=== PATIENT | female | born 1945 | race Caucasian/White ===

== ENCOUNTER → 2016-08-24 | Outpatient (CLI) | payer OTHER ==
[2016-08-24 10:24] LABS: Urine RBC None Seen /hpf (0 - 4)
[2016-08-24 12:00] LABS: Urine Bilirubin Negative (Negative); Urine Blood TRACE /uL (Negative); Urine Color Yellow (Yellow); Urine Glucose Normal (Normal); Urine Ketone Negative (Negative); Urine Nitrite Negative (Negative); Urine Squamous Epithelial Cell FEW /hpf (<5); Urine Urobilinogen Normal (Negative)
== END | disposition home or self-care (01) ==
LOC: LAB 10:15
PROVIDERS: ATTEND Urology
DX: N81.10 Cystocele, unspecified (principal); N39.3 Stress incontinence (female) (male); Z46.89 Encounter for fitting and adjustment of other specified devices
CPT/HCPCS: 81001; 87086

== ENCOUNTER 2016-10-25 11:13 | Inpatient (IN) | payer OTHER ==
[~2016-10-25] VITALS: Ht 152.4 cm; Wt 56.0 kg
[~2016-10-25 11:13] MED LIST: ASPI81CH59 PO; CALC-437 OR; CHOL1TAB42 PO; LOVA40TA72
[2016-10-25 11:44] LABS: Basophils # (auto) 0 uL; Basophils % (auto) 0.2 % (0.0-2.0); Eosinophils # (auto) 0.3 uL; Eosinophils % (auto) 3.4 % (0.0-7.0); Hemoglobin 14.2 g/dL (12.2-16.2); Lymphocytes # (auto) 1.4 uL; Lymphocytes % (auto) 14.5 % (10.0-50.0); Mean Corpuscular Hemoglobin 27.9 pg (28.0-32.0); Mean Corpuscular Hgb Conc. 33.1 g/dL (32.0-36.0); Mean Corpuscular Volume 84.2 fL (80.0-100.0); Mean Platelet Volume 7.6 fL (7.4-10.4); Monocytes # (auto) 0.6 uL; Monocytes % (auto) 6.6 % (0.0-12.0); Neutrophils # (auto) 7.1 uL; Neutrophils % (auto) 75.3 % (37.0-80.0); Platelet Count (auto) 310 10^3/uL (140-450); Red Cell Distribution Width 13.3 % (11.6-16.0); White Blood Cell 9.4 10^3/uL (4.4-10.8)
[2016-10-25 12:09] LABS: Urine Bilirubin Negative (Negative); Urine Blood 2+ /uL (Negative); Urine Ca Oxalate Crystal FEW (None Seen); Urine Color Yellow (Yellow); Urine Glucose Normal (Normal); Urine Ketone Negative (Negative); Urine Mucus FEW (None Seen); Urine Nitrite Negative (Negative); Urine RBC 3 /hpf (0 - 4); Urine Squamous Epithelial Cell FEW /hpf (<5); Urine Urobilinogen Normal (Negative); Urine pH 5.5 (5.0-8.0)
[2016-10-25 12:10] LABS: Albumin 3.4 g/dL (3.4-5.0); Alkaline Phosphatase 67 U/L (45-117); Anion Gap 11 (5-15); Aspartate Aminotransferase 11 U/L (15-37); Bilirubin, Total 0.4 mg/dL (0.2-1.0); Blood Urea Nitrogen 11 mg/dL (7-18); Calcium 8.5 mg/dL (8.5-10.1); Carbon Dioxide 24 mmol/L (21-32); Chloride 108 mmol/L (98-107); GFR African American 125 mL/min; GFR Non-African American 103 mL/min; Glucose 117 mg/dL (74-106); Magnesium 2.5 mg/dL (1.6-2.6); Potassium 3.4 mmol/L (3.5-5.1); Sodium 143 mmol/L (136-145); Total Protein 7.5 g/dL (6.4-8.2)
[2016-10-25] MEDS ORDERED: SODIUM CHLORIDE 0.9% 1,000 ML IV ONE (18:15)
[2016-10-25] MEDS ORDERED: SODIUM CHLORIDE 0.9% 1,000 ML IVB ONE (18:18)
[2016-10-25] MEDS ORDERED: ONDANSETRON HCL 4 MG/2 ML VIAL IV ONE (18:30)
[2016-10-25 18:58] LABS: Amylase 28 U/L (25-115)
[2016-10-25] MEDS ORDERED: metroNIDAZOLE 500MG/100ML 100 ML IV ONE (20:15)
[2016-10-25] MEDS ORDERED: cefTRIAXone 1GM/50ML D5W 50 ML IV ONE (20:15)
[2016-10-25] MEDS ORDERED: HYDROcodone-ACET 5/325MG TAB PO PRN (22:00)
[2016-10-25] MEDS ORDERED: PATIENTS OWN MEDICATION (lovastatin 40 MG) PO SCH ×2 (22:00)
[2016-10-25] MEDS ORDERED: TEMAZEPAM 15 MG CAP PO PRN (22:00)
[2016-10-25] MEDS ORDERED: ACETAMINOPHEN 325 MG TAB PO PRN (22:00)
[2016-10-25] MEDS ORDERED: PANTOPRAZOLE SODIUM 40 MG/10 ML VIAL IV ONE (22:00)
[2016-10-25] MEDS ORDERED: LOPERAMIDE HCL 2 MG CAP PO PRN (22:00)
[2016-10-25] MEDS ORDERED: ONDANSETRON HCL 4 MG/2 ML VIAL IV PRN (22:00)
[2016-10-25] MEDS ORDERED: ENOXAPARIN SOD 40 MG/0.4 ML SYRINGE SC ONE (22:30)
[2016-10-25] MEDS ORDERED: ATORVASTATIN 20 MG TAB PO ONE (22:30)
[2016-10-25] MEDS: SODIUM CHLORIDE 0.9% 1,000 ML IV SCH (22:30)
[2016-10-25] MEDS ORDERED: POTASSIUM CHL 20 Meq TABLET PO ONE (22:30)
[2016-10-25 22:48] VITALS: BP 143/83
[2016-10-26] VITALS (7 sets, daily range): BP systolic 126–134; BP diastolic 67–73
[2016-10-26] MEDS ORDERED: CHOL500023 PO (01:03)
[2016-10-26] MEDS ORDERED: CALC600T25 PO (01:03)
[2016-10-26] MEDS ORDERED: LOVA40TA72 PO (01:03)
[2016-10-26] MEDS ORDERED: metroNIDAZOLE 500MG/100ML 100 ML IV SCH ×2 (04:00→14:00)
[2016-10-26 05:30] LABS: Basophils # (auto) 0 uL; Basophils % (auto) 0.5 % (0.0-2.0); Eosinophils # (auto) 0.4 uL; Eosinophils % (auto) 6.9 % (0.0-7.0); Hematocrit 34.5 % (36.0-46.0); Hemoglobin 11.5 g/dL (12.2-16.2); Lymphocytes # (auto) 1.4 uL; Lymphocytes % (auto) 24.5 % (10.0-50.0); Mean Corpuscular Hemoglobin 28.1 pg (28.0-32.0); Mean Corpuscular Hgb Conc. 33.3 g/dL (32.0-36.0); Mean Corpuscular Volume 84.4 fL (80.0-100.0); Mean Platelet Volume 7.9 fL (7.4-10.4); Monocytes # (auto) 0.5 uL; Monocytes % (auto) 8.6 % (0.0-12.0); Neutrophils # (auto) 3.4 uL; Neutrophils % (auto) 59.5 % (37.0-80.0); Platelet Count (auto) 247 10^3/uL (140-450); Red Cell Distribution Width 13.1 % (11.6-16.0); White Blood Cell 5.7 10^3/uL (4.4-10.8)
[2016-10-26 05:58] LABS: Albumin 2.6 g/dL (3.4-5.0); Bilirubin, Total 0.4 mg/dL (0.2-1.0); Calcium 7.5 mg/dL (8.5-10.1); Potassium 3.6 mmol/L (3.5-5.1); Total Protein 5.7 g/dL (6.4-8.2)
[2016-10-26] MEDS ORDERED: cefTRIAXone 1GM/50ML D5W 50 ML IV SCH (09:00)
[2016-10-26] MEDS: FLORASTOR (S. BOULARDII) 250 MG CAP PO SCH (09:39)
[2016-10-26] MEDS: ENOXAPARIN SOD 40 MG/0.4 ML SYRINGE SC SCH (09:40)
[2016-10-26] MEDS ORDERED: PANTOPRAZOLE SODIUM 40 MG/10 ML VIAL IV SCH (10:00)
[2016-10-26] MEDS: VANCOMYCIN HCL 125MG/5ML ORAL SOL GT SCH ×2 (13:21→18:47)
[2016-10-26] MEDS: SODIUM CHLORIDE 0.9% 1,000 ML IV SCH (15:00)
[2016-10-26] MEDS ORDERED: ATORVASTATIN 20 MG TAB PO SCH (22:00)
[2016-10-26] MEDS: ATORVASTATIN 20 MG TAB PO SCH (22:10)
[2016-10-27] VITALS (7 sets, daily range): BP systolic 118–127; BP diastolic 55–70
[2016-10-27] MEDS: VANCOMYCIN HCL 125MG/5ML ORAL SOL GT SCH ×4 (00:28→17:46)
[2016-10-27 06:25] LABS: Basophils # (auto) 0 uL; Basophils % (auto) 0.4 % (0.0-2.0); Eosinophils # (auto) 0.4 uL; Eosinophils % (auto) 8.6 % (0.0-7.0); Hematocrit 34.8 % (36.0-46.0); Hemoglobin 11.8 g/dL (12.2-16.2); Lymphocytes # (auto) 1.2 uL; Lymphocytes % (auto) 28.1 % (10.0-50.0); Mean Corpuscular Hemoglobin 28.3 pg (28.0-32.0); Mean Corpuscular Volume 83.3 fL (80.0-100.0); Mean Platelet Volume 7.8 fL (7.4-10.4); Monocytes # (auto) 0.5 uL; Monocytes % (auto) 11.2 % (0.0-12.0); Neutrophils # (auto) 2.2 uL; Neutrophils % (auto) 51.7 % (37.0-80.0); Platelet Count (auto) 255 10^3/uL (140-450); Red Cell Distribution Width 13.3 % (11.6-16.0); White Blood Cell 4.3 10^3/uL (4.4-10.8)
[2016-10-27 06:53] LABS: BUN/Creatinine Ratio 13.5; Calcium 7.9 mg/dL (8.5-10.1); Potassium 3.6 mmol/L (3.5-5.1)
[2016-10-27] MEDS: SODIUM CHLORIDE 0.9% 1,000 ML IV SCH (07:35)
[2016-10-27] MEDS: ENOXAPARIN SOD 40 MG/0.4 ML SYRINGE SC SCH (10:33)
[2016-10-27] MEDS: FLORASTOR (S. BOULARDII) 250 MG CAP PO SCH (10:33)
[2016-10-27] MEDS: metroNIDAZOLE 500 MG TAB PO SCH ×2 (17:46→22:12)
[2016-10-27] MEDS: ATORVASTATIN 20 MG TAB PO SCH (22:12)
[2016-10-28] MEDS: VANCOMYCIN HCL 125MG/5ML ORAL SOL GT SCH ×5 (00:18→23:37)
[2016-10-28 05:00] VITALS: BP 123/61
[2016-10-28] MEDS: metroNIDAZOLE 500 MG TAB PO SCH ×3 (06:13→21:50)
[2016-10-28 08:10] VITALS: BP 125/52
[2016-10-28 09:00] VITALS: BP 125/52
[2016-10-28] MEDS: FLORASTOR (S. BOULARDII) 250 MG CAP PO SCH (11:12)
[2016-10-28 13:00] VITALS: BP 115/52
[2016-10-28 17:10] VITALS: BP 110/68
[2016-10-28 21:36] VITALS: BP 127/72
[2016-10-28] MEDS: ATORVASTATIN 20 MG TAB PO SCH (21:50)
[2016-10-29 04:56] VITALS: BP 123/66
[2016-10-29] MEDS: VANCOMYCIN HCL 125MG/5ML ORAL SOL GT SCH ×3 (05:49→18:10)
[2016-10-29] MEDS: metroNIDAZOLE 500 MG TAB PO SCH ×2 (05:49→14:51)
[2016-10-29 09:00] VITALS: BP 119/62
[2016-10-29] MEDS: FLORASTOR (S. BOULARDII) 250 MG CAP PO SCH (10:31)
[2016-10-29 13:00] VITALS: BP 121/55
[2016-10-29 17:00] VITALS: BP 145/62
[2016-10-29 17:31] VITALS: BP 121/55
[2016-10-29] MEDS ORDERED: PRO-STAT 64 30ML PO SCH (18:00)
== END 2016-10-29 19:00 | disposition home or self-care (01) | DRG 372 ==
LOC: ER 11:16 → OVERFLOW 11:17 → EAST 22:57
PROVIDERS: ADMIT Internal Medicine; ATTEND Internal Medicine
DX: A04.7 Enterocolitis due to Clostridium difficile (principal); N30.00 Acute cystitis without hematuria; E78.5 Hyperlipidemia, unspecified; E86.0 Dehydration; E87.6 Hypokalemia; K57.30 Diverticulosis of large intestine without perforation or abscess without bleeding; Z82.0 Family history of epilepsy and other diseases of the nervous system; Z82.49 Family history of ischemic heart disease and other diseases of the circulatory system; Z82.3 Family history of stroke; Z79.899 Other long term (current) drug therapy
CPT/HCPCS: 36415; 71010; 74176; 80048; 80053; 81001; 82150; 83690; 83735; 84484; 85025; 87081; 87086; 87493; 93005; 94761; 96361; 96365; 96368; 96375; C9113; J0696; J2405; J3490

== ENCOUNTER → 2016-11-10 | Outpatient (CLI) | payer OTHER ==
[~2016-11-10] MED LIST changes: -CALC-437 OR; +CALC600T25 PO; -CHOL1TAB42 PO; +CHOL500023 PO; -LOVA40TA72; +LOVA40TA72 PO
[2016-11-10 08:04] LABS: Basophils # (auto) 0 uL; Basophils % (auto) 0.6 % (0.0-2.0); Eosinophils # (auto) 0.2 uL; Eosinophils % (auto) 5.2 % (0.0-7.0); Hematocrit 41.6 % (36.0-46.0); Hemoglobin 13.5 g/dL (12.2-16.2); Lymphocytes # (auto) 1.6 uL; Lymphocytes % (auto) 33.6 % (10.0-50.0); Mean Corpuscular Hemoglobin 27.5 pg (28.0-32.0); Mean Corpuscular Hgb Conc. 32.5 g/dL (32.0-36.0); Mean Corpuscular Volume 84.8 fL (80.0-100.0); Mean Platelet Volume 8.4 fL (7.4-10.4); Monocytes # (auto) 0.3 uL; Monocytes % (auto) 6.8 % (0.0-12.0); Neutrophils # (auto) 2.5 uL; Neutrophils % (auto) 53.8 % (37.0-80.0); Platelet Count (auto) 306 10^3/uL (140-450); Red Cell Distribution Width 14.2 % (11.6-16.0); White Blood Cell 4.7 10^3/uL (4.4-10.8)
[2016-11-10 08:25] LABS: Urine Bilirubin Negative (Negative); Urine Color Yellow (Yellow); Urine Glucose Normal (Normal); Urine Ketone TRACE (Negative); Urine Mucus FEW (None Seen); Urine Nitrite Negative (Negative); Urine RBC 8 /hpf (0 - 4); Urine Squamous Epithelial Cell MOD /hpf (<5); Urine Urobilinogen Normal (Negative); Urine pH 5.5 (5.0-8.0)
[2016-11-10 08:26] LABS: Urine Blood 1+ /uL (Negative)
[2016-11-10 08:35] LABS: Albumin 3.4 g/dL (3.4-5.0); BUN/Creatinine Ratio 28.3; Bilirubin, Total 0.4 mg/dL (0.2-1.0); Calcium 8.9 mg/dL (8.5-10.1); Potassium 3.9 mmol/L (3.5-5.1); Total Protein 6.8 g/dL (6.4-8.2)
== END | disposition home or self-care (01) ==
LOC: LAB 07:02
PROVIDERS: ATTEND Internal Medicine
DX: A04.7 Enterocolitis due to Clostridium difficile (principal)
CPT/HCPCS: 36415; 80053; 81001; 85025; 87086

== ENCOUNTER → 2016-11-13 | Outpatient (CLI) | payer OTHER | END | disposition home or self-care (01) | LOC: LAB 15:19 | PROVIDERS: ATTEND Internal Medicine | DX: N39.0 Urinary tract infection, site not specified (principal) | CPT/HCPCS: 87086 ==

== ENCOUNTER 2016-11-15 10:43 | Inpatient (IN) | payer OTHER ==
[~2016-11-15] VITALS: Ht 152.4 cm; Wt 56.1 kg
[2016-11-15 11:41] LABS: Basophils # (auto) 0 uL; Basophils % (auto) 0.1 % (0.0-2.0); Eosinophils # (auto) 0.1 uL; Eosinophils % (auto) 0.9 % (0.0-7.0); Hematocrit 41.8 % (36.0-46.0); Hemoglobin 13.8 g/dL (12.2-16.2); Lymphocytes # (auto) 1.2 uL; Lymphocytes % (auto) 9.2 % (10.0-50.0); Mean Corpuscular Hemoglobin 27.8 pg (28.0-32.0); Mean Corpuscular Hgb Conc. 32.9 g/dL (32.0-36.0); Mean Corpuscular Volume 84.4 fL (80.0-100.0); Mean Platelet Volume 7.7 fL (7.4-10.4); Monocytes # (auto) 0.8 uL; Monocytes % (auto) 5.8 % (0.0-12.0); Platelet Count (auto) 249 10^3/uL (140-450); Red Cell Distribution Width 13.8 % (11.6-16.0); White Blood Cell 13.1 10^3/uL (4.4-10.8)
[2016-11-15] MEDS ORDERED: SODIUM CHLORIDE 0.9% 1,000 ML IVB ONE (11:47)
[2016-11-15 12:05] LABS: Albumin 3.7 g/dL (3.4-5.0); Alkaline Phosphatase 67 U/L (45-117); Anion Gap 9 (5-15); Aspartate Aminotransferase 16 U/L (15-37); BUN/Creatinine Ratio 16.7; Bilirubin, Total 0.8 mg/dL (0.2-1.0); Blood Urea Nitrogen 9 mg/dL (7-18); Calcium 8.6 mg/dL (8.5-10.1); Carbon Dioxide 26 mmol/L (21-32); Chloride 105 mmol/L (98-107); GFR African American 144 mL/min; GFR Non-African American 119 mL/min; Glucose 107 mg/dL (74-106); Potassium 3.6 mmol/L (3.5-5.1); Sodium 140 mmol/L (136-145); Total Protein 7.3 g/dL (6.4-8.2)
[2016-11-15 12:19] LABS: Magnesium 2.6 mg/dL (1.6-2.6)
[2016-11-15 12:27] LABS: INR 0.93 (0.9-1.15); Partial Thromboplastin Time 25.9 sec (22.64-33.71)
[2016-11-15 12:43] LABS: Urine Bilirubin Negative (Negative); Urine Blood TRACE /uL (Negative); Urine Color Colorless (Yellow); Urine Glucose Normal (Normal); Urine Ketone Negative (Negative); Urine Nitrite Negative (Negative); Urine RBC <1 /hpf (0 - 4); Urine Urobilinogen Normal (Negative); Urine pH 5.5 (5.0-8.0)
[2016-11-15] MEDS ORDERED: metroNIDAZOLE 500MG/100ML 100 ML IV ONE (13:00)
[2016-11-15] MEDS ORDERED: LORazepam 0.5 MG TAB PO PRN (13:45)
[2016-11-15] MEDS ORDERED: HYDROcodone-ACET 5/325MG TAB PO PRN (13:45)
[2016-11-15] MEDS ORDERED: TEMAZEPAM 15 MG CAP PO PRN (13:45)
[2016-11-15] MEDS ORDERED: MORPHINE SULF INJ 2 MG/ML SYRINGE 1ML IV PRN (13:45)
[2016-11-15] MEDS ORDERED: ACETAMINOPHEN 500 MG TAB PO PRN (13:45)
[2016-11-15] MEDS ORDERED: PROMETHAZINE HCL 25 MG/ML 1ML IV PRN (13:45)
[2016-11-15] MEDS ORDERED: FAMOTIDINE 20 MG TAB PO ONE (14:30)
[2016-11-15] MEDS: SODIUM CHLORIDE 0.9% 1,000 ML IV SCH (14:54)
[2016-11-15] MEDS: metroNIDAZOLE 500 MG TAB PO SCH ×2 (14:55→22:21)
[2016-11-15 16:00] VITALS: BP 123/66
[2016-11-15] MEDS ORDERED: GOLYTELY 4L KIT PO ONE (16:00)
[2016-11-15] MEDS ORDERED: metroNIDAZOLE 500MG/100ML 100 ML IV SCH (18:00)
[2016-11-15 21:32] VITALS: BP 141/68
[2016-11-15] MEDS: FAMOTIDINE 20 MG TAB PO SCH (22:20)
[2016-11-15] MEDS: VANCOMYCIN HCL 125MG/5ML ORAL SOL PO SCH (22:22)
[2016-11-16] MEDS: SODIUM CHLORIDE 0.9% 1,000 ML IV SCH ×3 (01:36→17:08)
[2016-11-16] MEDS: VANCOMYCIN HCL 125MG/5ML ORAL SOL PO SCH (04:54)
[2016-11-16] MEDS: metroNIDAZOLE 500 MG TAB PO SCH (04:54)
[2016-11-16 05:01] VITALS: BP 108/61
[2016-11-16 06:49] LABS: Basophils # (auto) 0 uL; Basophils % (auto) 0.3 % (0.0-2.0); Eosinophils # (auto) 0.2 uL; Hematocrit 34.1 % (36.0-46.0); Hemoglobin 11.4 g/dL (12.2-16.2); Lymphocytes # (auto) 1.7 uL; Lymphocytes % (auto) 19.4 % (10.0-50.0); Mean Corpuscular Hemoglobin 28.3 pg (28.0-32.0); Mean Corpuscular Hgb Conc. 33.5 g/dL (32.0-36.0); Mean Corpuscular Volume 84.3 fL (80.0-100.0); Mean Platelet Volume 7.9 fL (7.4-10.4); Monocytes # (auto) 0.5 uL; Monocytes % (auto) 5.9 % (0.0-12.0); Neutrophils # (auto) 6.3 uL; Neutrophils % (auto) 72.4 % (37.0-80.0); Platelet Count (auto) 213 10^3/uL (140-450); Red Cell Distribution Width 13.8 % (11.6-16.0); White Blood Cell 8.7 10^3/uL (4.4-10.8)
[2016-11-16 08:00] VITALS: BP 114/63
[2016-11-16 08:05] VITALS: BP 114/63
[2016-11-16] MEDS ORDERED: MIDAZOLAM HCL 5 MG/ML-1ML VIAL ONE (08:12)
[2016-11-16] MEDS ORDERED: diphenhdrAMINE HCL 50 MG/1 ML VL ONE (08:12)
[2016-11-16] MEDS ORDERED: SODIUM CHLORIDE LOCK 10 ML ONE (08:12)
[2016-11-16] MEDS ORDERED: fentaNYL CITRATE 100 MCG/2 ML VL ONE (08:13)
[2016-11-16] MEDS: FAMOTIDINE 20 MG TAB PO SCH (10:00)
[2016-11-16 16:51] VITALS: BP 125/60
[2016-11-16 22:00] VITALS: BP 128/45
[2016-11-16] MEDS: PANTOPRAZOLE 40 MG TAB PO SCH (22:01)
[2016-11-16] MEDS: FLORASTOR (S. BOULARDII) 250 MG CAP PO SCH (22:01)
[2016-11-17 05:00] VITALS: BP 133/67
[2016-11-17] MEDS: SODIUM CHLORIDE 0.9% 1,000 ML IV SCH ×2 (05:44→13:59)
[2016-11-17 07:05] LABS: Basophils # (auto) 0 uL; Basophils % (auto) 0.4 % (0.0-2.0); Eosinophils # (auto) 0.2 uL; Eosinophils % (auto) 3.6 % (0.0-7.0); Hematocrit 35.9 % (36.0-46.0); Hemoglobin 12.1 g/dL (12.2-16.2); Lymphocytes # (auto) 1.3 uL; Lymphocytes % (auto) 27.3 % (10.0-50.0); Mean Corpuscular Hemoglobin 28.1 pg (28.0-32.0); Mean Corpuscular Hgb Conc. 33.7 g/dL (32.0-36.0); Mean Corpuscular Volume 83.6 fL (80.0-100.0); Mean Platelet Volume 7.6 fL (7.4-10.4); Monocytes # (auto) 0.4 uL; Monocytes % (auto) 7.4 % (0.0-12.0); Neutrophils % (auto) 61.3 % (37.0-80.0); Platelet Count (auto) 226 10^3/uL (140-450); Red Cell Distribution Width 13.8 % (11.6-16.0); White Blood Cell 4.8 10^3/uL (4.4-10.8)
[2016-11-17 07:21] LABS: BUN/Creatinine Ratio 15.2; Calcium 7.9 mg/dL (8.5-10.1); Potassium 3.6 mmol/L (3.5-5.1)
[2016-11-17 08:00] VITALS: BP 132/63
[2016-11-17 08:29] VITALS: BP 132/63
[2016-11-17] MEDS: PANTOPRAZOLE 40 MG TAB PO SCH (09:35)
[2016-11-17] MEDS: FLORASTOR (S. BOULARDII) 250 MG CAP PO SCH ×2 (09:35→22:27)
[2016-11-17] MEDS ORDERED: FECAL MICROBIOTA TRANSPLANTATION 30mL SUSPENSION NG ONE (10:00)
[2016-11-17 12:58] VITALS: BP 153/73
[2016-11-17 17:14] VITALS: BP 135/66
[2016-11-17 21:42] VITALS: BP 148/72
[2016-11-18] MEDS: SODIUM CHLORIDE 0.9% 1,000 ML IV SCH ×3 (01:44→21:16)
[2016-11-18 04:47] VITALS: BP 141/63
[2016-11-18 08:20] VITALS: BP 136/76
[2016-11-18 09:00] VITALS: BP 136/76
[2016-11-18] MEDS: FLORASTOR (S. BOULARDII) 250 MG CAP PO SCH ×2 (10:49→21:17)
[2016-11-18 13:00] VITALS: BP 148/75
[2016-11-18 16:42] VITALS: BP 138/74
[2016-11-19] MEDS: SODIUM CHLORIDE 0.9% 1,000 ML IV SCH (04:44)
[2016-11-19 06:11] VITALS: BP 132/68
[2016-11-19 07:45] VITALS: BP 137/67
[2016-11-19 09:00] VITALS: BP 137/67
[2016-11-19] MEDS: FLORASTOR (S. BOULARDII) 250 MG CAP PO SCH (09:57)
[2016-11-19 11:52] VITALS: BP 137/67
== END 2016-11-19 12:10 | disposition home or self-care (01) | DRG 373 ==
LOC: ER 10:47 → OVERFLOW 11:51 → OBSVTOIN 11:52 → CENTRAL 15:23
PROVIDERS: ADMIT Family Medicine; ATTEND Internal Medicine
PROC: 0DBP8ZX Excision of Rectum, Via Natural or Artificial Opening Endoscopic, Diagnostic (ICD-10-PCS; 2016-11-16)
PROC: 0DBE8ZX Excision of Large Intestine, Via Natural or Artificial Opening Endoscopic, Diagnostic (ICD-10-PCS; 2016-11-16)
PROC: 3E0H7GC Introduction of Other Therapeutic Substance into Lower GI, Via Natural or Artificial Opening (ICD-10-PCS; 2016-11-16)
PROC: 0DBM8ZX Excision of Descending Colon, Via Natural or Artificial Opening Endoscopic, Diagnostic (ICD-10-PCS; principal; 2016-11-16 11:26)
DX: A04.7 Enterocolitis due to Clostridium difficile (principal); Z79.899 Other long term (current) drug therapy; E78.5 Hyperlipidemia, unspecified; K57.30 Diverticulosis of large intestine without perforation or abscess without bleeding; Z82.0 Family history of epilepsy and other diseases of the nervous system; Z82.49 Family history of ischemic heart disease and other diseases of the circulatory system; Z90.89 Acquired absence of other organs; K76.0 Fatty (change of) liver, not elsewhere classified; K63.5 Polyp of colon; K62.89 Other specified diseases of anus and rectum; Z80.9 Family history of malignant neoplasm, unspecified
CPT/HCPCS: 36415; 45380; 71010; 74176; 80048; 80053; 81001; 82150; 83690; 83735; 84484; 85025; 85610; 85652; 85730; 86141; 87493; 93005; 94761; 96361; 96374; J2250; J3490

== ENCOUNTER → 2016-11-29 | Outpatient (CLI) | payer OTHER ==
[2016-11-29 15:32] LABS: Basophils # (auto) 0 uL; Basophils % (auto) 0.4 % (0.0-2.0); Eosinophils # (auto) 0.2 uL; Eosinophils % (auto) 2.7 % (0.0-7.0); Hematocrit 40.1 % (36.0-46.0); Hemoglobin 13.5 g/dL (12.2-16.2); Lymphocytes # (auto) 1.4 uL; Lymphocytes % (auto) 21.3 % (10.0-50.0); Mean Corpuscular Hemoglobin 28.2 pg (28.0-32.0); Mean Corpuscular Hgb Conc. 33.7 g/dL (32.0-36.0); Mean Corpuscular Volume 83.6 fL (80.0-100.0); Mean Platelet Volume 7.7 fL (7.4-10.4); Monocytes # (auto) 0.5 uL; Monocytes % (auto) 7.2 % (0.0-12.0); Neutrophils # (auto) 4.4 uL; Neutrophils % (auto) 68.4 % (37.0-80.0); Platelet Count (auto) 327 10^3/uL (140-450); Red Cell Distribution Width 14.1 % (11.6-16.0); White Blood Cell 6.4 10^3/uL (4.4-10.8)
[2016-11-29 15:33] LABS: Urine Bilirubin Negative (Negative); Urine Blood TRACE /uL (Negative); Urine Color Yellow (Yellow); Urine Glucose Normal (Normal); Urine Ketone Negative (Negative); Urine Mucus FEW (None Seen); Urine Nitrite Negative (Negative); Urine RBC 1 /hpf (0 - 4); Urine Squamous Epithelial Cell FEW /hpf (<5); Urine Urobilinogen Normal (Negative); Urine pH 5.5 (5.0-8.0)
[2016-11-29 15:39] LABS: Albumin 3.4 g/dL (3.4-5.0); BUN/Creatinine Ratio 21.2; Calcium 8.7 mg/dL (8.5-10.1); Potassium 3.8 mmol/L (3.5-5.1)
[2016-11-29 15:48] LABS: Bilirubin, Total 0.3 mg/dL (0.2-1.0); Total Protein 7.3 g/dL (6.4-8.2)
== END | disposition home or self-care (01) ==
LOC: LAB 14:50
PROVIDERS: ATTEND Internal Medicine
DX: A04.7 Enterocolitis due to Clostridium difficile (principal)
CPT/HCPCS: 36415; 80053; 81001; 85025

== ENCOUNTER 2017-03-15 09:12 | Emergency (ER) | payer OTHER ==
[~2017-03-15] VITALS: Ht 152.4 cm; Wt 54.4 kg
[2017-03-15 10:29] LABS: Calcium 8.8 mg/dL (8.5-10.1); Potassium 3.9 mmol/L (3.5-5.1)
[2017-03-15 10:31] LABS: Basophils # (auto) 0 uL; Basophils % (auto) 0.3 % (0.0-2.0); CONDITION Y; Eosinophils # (auto) 0.1 uL; Eosinophils % (auto) 1.8 % (0.0-7.0); Hematocrit 42.6 % (36.0-46.0); Hemoglobin 14.6 g/dL (12.2-16.2); Lymphocytes # (auto) 1.4 uL; Lymphocytes % (auto) 26.2 % (10.0-50.0); Mean Corpuscular Hemoglobin 28.5 pg (28.0-32.0); Mean Corpuscular Hgb Conc. 34.2 g/dL (32.0-36.0); Mean Corpuscular Volume 83.3 fL (80.0-100.0); Monocytes # (auto) 0.3 uL; Monocytes % (auto) 6.2 % (0.0-12.0); Neutrophils # (auto) 3.5 uL; Neutrophils % (auto) 65.5 % (37.0-80.0); Platelet Count (auto) 250 10^3/uL (140-450); Red Cell Distribution Width 13.5 % (11.6-16.0); White Blood Cell 5.4 10^3/uL (4.4-10.8)
[2017-03-15 10:32] LABS: Bilirubin, Total 0.4 mg/dL (0.2-1.0); Total Protein 7.7 g/dL (6.4-8.2)
[2017-03-15] MEDS ORDERED: SODIUM CHLORIDE 0.9% 1,000 ML IV ONE (13:45)
[2017-03-15 14:02] LABS: INR 0.94 (0.9-1.15); Partial Thromboplastin Time 26.4 sec (22.64-33.71); Prothrombin Time 10.2 sec (9.37-12.3)
[2017-03-15 16:00] VITALS: BP 118/62
== END 2017-03-15 17:20 | disposition home or self-care (01) ==
LOC: ER 09:12
DX: K64.9 Unspecified hemorrhoids (principal); K57.30 Diverticulosis of large intestine without perforation or abscess without bleeding; Z79.82 Long term (current) use of aspirin; E78.00 Pure hypercholesterolemia, unspecified
CPT/HCPCS: 36415; 74176; 80053; 85025; 85610; 85730; 93005; 96360

== ENCOUNTER → 2017-03-26 | Outpatient (CLI) | payer OTHER | END | disposition home or self-care (01) | LOC: LAB 07:33 | PROVIDERS: ATTEND Internal Medicine | DX: E55.9 Vitamin D deficiency, unspecified (principal) | CPT/HCPCS: 82306; 84156 ==

== ENCOUNTER → 2017-04-06 | Outpatient (CLI) | payer OTHER ==
[2017-04-09 13:07] LABS: Antiproteinase 3 (PR-3) Ab <3.5 U/mL (0.0-3.5)
== END | disposition home or self-care (01) ==
LOC: LAB 12:02
PROVIDERS: ATTEND Internal Medicine
DX: K92.1 Melena (principal)
CPT/HCPCS: 36415; 83520; 85652; 86038; 86141; 86256

== ENCOUNTER 2017-07-13 08:20 | Day surgery (SDC) | payer OTHER ==
[2017-07-10 12:38] LABS: Basophils # (auto) 0 uL; Basophils % (auto) 0.4 % (0.0-2.0); Eosinophils # (auto) 0.1 uL; Eosinophils % (auto) 2.1 % (0.0-7.0); Hematocrit 43.2 % (36.0-46.0); Hemoglobin 14.3 g/dL (12.2-16.2); Lymphocytes # (auto) 1.6 uL; Lymphocytes % (auto) 28.8 % (10.0-50.0); Mean Corpuscular Hemoglobin 28.4 pg (28.0-32.0); Mean Corpuscular Hgb Conc. 33.2 g/dL (32.0-36.0); Mean Corpuscular Volume 85.4 fL (80.0-100.0); Monocytes # (auto) 0.4 uL; Monocytes % (auto) 6.5 % (0.0-12.0); Neutrophils # (auto) 3.5 uL; Neutrophils % (auto) 62.2 % (37.0-80.0); Platelet Count (auto) 270 10^3/uL (140-450); Red Blood Cells 5.05 10^6/uL (4.0-5.20); Red Cell Distribution Width 12.9 % (11.8-14.3); White Blood Cell 5.6 10^3/uL (4.4-10.8)
[2017-07-10 12:58] LABS: INR 0.95 (0.9-1.15); Prothrombin Time 10.3 sec (9.37-12.3)
[~2017-07-13] VITALS: Ht 154.9 cm; Wt 53.5 kg
[~2017-07-13 08:20] MED LIST changes: -CALC600T25 PO
[2017-07-13] MEDS ORDERED: SODIUM CHLORIDE LOCK 10 ML ONE (08:32)
[2017-07-13] MEDS ORDERED: diphenhdrAMINE HCL 50 MG/1 ML VL ONE (08:33)
[2017-07-13] MEDS ORDERED: LIDOCAINE VISCOUS 2% 15ML UD ONE (08:33)
[2017-07-13] MEDS ORDERED: MIDAZOLAM HCL 5 MG/ML-1ML VIAL ONE (09:05)
[2017-07-13] MEDS ORDERED: fentaNYL CITRATE 100 MCG/2 ML VL ONE (09:05)
[2017-07-13] MEDS: MIDAZOLAM HCL 5 MG/ML-1ML VIAL ONE ×3 (09:28→09:41)
[2017-07-13] MEDS: fentaNYL CITRATE 100 MCG/2 ML VL ONE ×3 (09:28→09:41)
== END 2017-07-13 10:40 | disposition home or self-care (01) ==
LOC: GI 08:20
PROVIDERS: ATTEND Internal Medicine Gastroenterology
DX: K57.30 Diverticulosis of large intestine without perforation or abscess without bleeding (principal); K57.10 Diverticulosis of small intestine without perforation or abscess without bleeding; E66.9 Obesity, unspecified; Z68.22 Body mass index [BMI] 22.0-22.9, adult
CPT/HCPCS: 36415; 43239; 45378; 85025; 85610; J1200; J2250; J3010; 99152

== ENCOUNTER → 2017-08-22 | Outpatient (CLI) | payer OTHER ==
[2017-08-22 07:39] LABS: Basophils # (auto) 0 uL; Basophils % (auto) 0.4 % (0.0-2.0); Eosinophils # (auto) 0.2 uL; Eosinophils % (auto) 3.4 % (0.0-7.0); Hematocrit 43.1 % (36.0-46.0); Hemoglobin 14.2 g/dL (12.2-16.2); Lymphocytes # (auto) 1.7 uL; Lymphocytes % (auto) 34.6 % (10.0-50.0); Mean Corpuscular Hemoglobin 28.4 pg (28.0-32.0); Mean Corpuscular Volume 85.9 fL (80.0-100.0); Monocytes # (auto) 0.4 uL; Monocytes % (auto) 7.7 % (0.0-12.0); Neutrophils # (auto) 2.7 uL; Neutrophils % (auto) 53.9 % (37.0-80.0); Nucleated Red Blood Cells % 0.2 %; Platelet Count (auto) 243 10^3/uL (140-450); Red Blood Cells 5.02 10^6/uL (4.0-5.20); Red Cell Distribution Width 14.1 % (11.8-14.3); White Blood Cell 5.1 10^3/uL (4.4-10.8)
[2017-08-22 08:33] LABS: Albumin 3.7 g/dL (3.4-5.0); BUN/Creatinine Ratio 27.8; Bilirubin, Total 0.3 mg/dL (0.2-1.0); Calcium 9.3 mg/dL (8.5-10.1); Potassium 4.2 mmol/L (3.5-5.1); Total Protein 7.6 g/dL (6.4-8.2)
[2017-08-23 03:07] LABS: RPR Non Reactive (Non Reactive)
[2017-08-25 01:18] LABS: H. pylori Stool Ag, EIA NEG. (Negative)
== END | disposition home or self-care (01) ==
LOC: LAB 07:03
PROVIDERS: ATTEND Internal Medicine Gastroenterology
DX: Z00.01 Encounter for general adult medical examination with abnormal findings (principal); K92.1 Melena; E59 Dietary selenium deficiency; E78.5 Hyperlipidemia, unspecified; E55.9 Vitamin D deficiency, unspecified; K76.89 Other specified diseases of liver; Z79.899 Other long term (current) drug therapy
CPT/HCPCS: 36415; 80053; 80061; 82043; 82306; 83036; 85025; 86592; 86703

== ENCOUNTER 2017-12-10 06:20 | Inpatient (IN) | payer OTHER ==
[2017-12-07 09:44] LABS: Basophils # (auto) 0 uL; Basophils % (auto) 0.5 % (0.0-2.0); Eosinophils # (auto) 0.1 uL; Eosinophils % (auto) 1.9 % (0.0-7.0); Hemoglobin 13.9 g/dL (12.2-16.2); Lymphocytes # (auto) 1.3 uL; Lymphocytes % (auto) 24.7 % (10.0-50.0); Mean Corpuscular Hemoglobin 28.8 pg (28.0-32.0); Mean Corpuscular Hgb Conc. 33.8 g/dL (32.0-36.0); Mean Corpuscular Volume 85.4 fL (80.0-100.0); Monocytes # (auto) 0.3 uL; Monocytes % (auto) 5.8 % (0.0-12.0); Neutrophils # (auto) 3.5 uL; Neutrophils % (auto) 67.1 % (37.0-80.0); Platelet Count (auto) 234 10^3/uL (140-450); White Blood Cell 5.2 10^3/uL (4.4-10.8)
[2017-12-07 09:53] LABS: Urine Bacteria FEW /hpf (None Seen); Urine Blood 1+ /uL (Negative); Urine Mucus FEW (None Seen); Urine WBC 15 /hpf (0 - 5)
[2017-12-07 10:12] LABS: INR 0.96 (0.9-1.15); Prothrombin Time 10.3 sec (9.27-12.13)
[2017-12-07 10:15] LABS: Albumin 3.9 g/dL (3.4-5.0); BUN/Creatinine Ratio 28.8; Bilirubin, Total 0.7 mg/dL (0.2-1.0); Calcium 8.6 mg/dL (8.5-10.1); Potassium 3.4 mmol/L (3.5-5.1); Total Protein 7.4 g/dL (6.4-8.2)
[~2017-12-10] VITALS: Ht 152.4 cm; Wt 60.7 kg
[~2017-12-10 06:20] MED LIST changes: +ATO40T PO; -LOVA40TA72 PO; +METF-370 PO
[2017-12-10] MEDS ORDERED: BUPIVACAINE 0.25% INJ 50ML VIAL ONE (07:08)
[2017-12-10] MEDS ORDERED: LIDOCAINE W/ EPINEPHRINE 1 % INJ 30ML ONE (07:08)
[2017-12-10] MEDS ORDERED: ceFAZolin 1GM VL ONE (07:08)
[2017-12-10] MEDS ORDERED: CONJ ESTROGENS 0.625MG/GM VAG CRM 30GM PV ONE (07:08)
[2017-12-10] MEDS ORDERED: CIPROFLOXACIN 400MG/200ML 200 ML IV ONE (07:26)
[2017-12-10] MEDS ORDERED: fentaNYL CITRATE 100 MCG/2 ML VL ONE (07:37)
[2017-12-10] MEDS ORDERED: MIDAZOLAM HCL 1MG/1ML-2 ML VIAL ONE (07:38)
[2017-12-10] MEDS ORDERED: MEPERIDINE HCL (50 MG/ML) 1 ML VIAL ONE (07:38)
[2017-12-10] MEDS ORDERED: SUCCINYLCHOLINE CHLORIDE 20 MG/ML 10ML VIAL IV ONE (08:02)
[2017-12-10] MEDS ORDERED: PROPOFOL 10 MG/ML 20 ML IV ONE (08:05)
[2017-12-10] MEDS ORDERED: DEXAMETHASONE SOD PHOS 10MG/1ML VIAL INJ ONE (08:05)
[2017-12-10] MEDS ORDERED: ACCU-CHEK COMFORT CURVE STRIP VI ONE (08:15)
[2017-12-10] MEDS ORDERED: KETOROLAC TROMETH 30 MG/ML 1ML VIAL IV ONE (08:15)
[2017-12-10] MEDS ORDERED: MORPHINE SULFATE 8mg/ml INJ SDV IV PRN ×2 (08:15→09:15)
[2017-12-10] MEDS ORDERED: LABETALOL HCL 5 MG/ML 4ML SYRINGE IV PRN (08:15)
[2017-12-10] MEDS ORDERED: ePHEDrine SULFATE 50 MG/ML AMP IV PRN (08:15)
[2017-12-10] MEDS ORDERED: MIDAZOLAM HCL 1MG/1ML-2 ML VIAL IV PRN (08:15)
[2017-12-10] MEDS ORDERED: HYDROmorphone HCL 2 MG/ML VL IV PRN (08:15)
[2017-12-10] MEDS ORDERED: ONDANSETRON HCL 4 MG/2 ML VIAL IV ONE (08:15)
[2017-12-10] MEDS ORDERED: KETOROLAC TROMETH 30 MG/ML 1ML VIAL ONE (08:43)
[2017-12-10] MEDS ORDERED: NITROGLYCERIN 0.4 MG SL TAB SL PRN (09:15)
[2017-12-10] MEDS ORDERED: MORPHINE SULFATE 8mg/ml INJ SDV IV ONE (10:00)
[2017-12-10 17:00] VITALS: BP 136/57
[2017-12-10 22:00] VITALS: BP 125/70
[2017-12-11 04:52] VITALS: BP 128/65
[2017-12-11 08:05] VITALS: BP 122/52
== END 2017-12-11 11:30 | disposition home or self-care (01) | DRG 747 ==
LOC: SUR 06:20 → OVERFLOW 12:11 → WEST WING 15:15
PROVIDERS: ADMIT Urology; ATTEND Urology
PROC: 0JUC0JZ Supplement of Pelvic Region Subcutaneous Tissue and Fascia with Synthetic Substitute, Open Approach (ICD-10-PCS; 2017-12-10)
PROC: 0UBG0ZZ Excision of Vagina, Open Approach (ICD-10-PCS; 2017-12-10)
PROC: 0TJB8ZZ Inspection of Bladder, Via Natural or Artificial Opening Endoscopic (ICD-10-PCS; 2017-12-10)
PROC: 0TSC0ZZ Reposition Bladder Neck, Open Approach (ICD-10-PCS; principal; 2017-12-10 07:41)
DX: N39.3 Stress incontinence (female) (male) (principal); F98.1 Encopresis not due to a substance or known physiological condition; N81.10 Cystocele, unspecified; N89.8 Other specified noninflammatory disorders of vagina
CPT/HCPCS: 36415; 80053; 81001; 82962; 85025; 85610; 85730; 88302; J0330; J0690; J1100; J1885; J2250; J2704; J3490

== ENCOUNTER → 2018-04-18 | Outpatient (CLI) | payer OTHER | END | disposition home or self-care (01) | LOC: LAB 14:47 | PROVIDERS: ATTEND Urology | DX: N39.0 Urinary tract infection, site not specified (principal) | CPT/HCPCS: 87086; 87088; 87186 ==

== ENCOUNTER → 2018-06-13 | Outpatient (CLI) | payer OTHER, MEDICARE | END | disposition home or self-care (01) | LOC: LAB 13:53 | PROVIDERS: ATTEND Urology | DX: N39.0 Urinary tract infection, site not specified (principal) | CPT/HCPCS: 87086 ==

== ENCOUNTER → 2018-07-15 | Outpatient (CLI) | payer OTHER ==
[2018-07-15 08:14] LABS: Basophils # (auto) 0 uL; Basophils % (auto) 0.2 % (0.0-2.0); Eosinophils # (auto) 0.1 uL; Hematocrit 38.8 % (36.0-46.0); Lymphocytes # (auto) 1.2 uL; Lymphocytes % (auto) 42.3 % (10.0-50.0); Mean Corpuscular Hemoglobin 28.3 pg (28.0-32.0); Mean Corpuscular Hgb Conc. 33.5 g/dL (32.0-36.0); Mean Corpuscular Volume 84.5 fL (80.0-100.0); Monocytes # (auto) 0.3 uL; Monocytes % (auto) 9.2 % (0.0-12.0); Neutrophils # (auto) 1.3 uL; Neutrophils % (auto) 46.3 % (37.0-80.0); Nucleated Red Blood Cells % 0.1 %; Platelet Count (auto) 170 10^3/uL (140-450); Red Blood Cells 4.59 10^6/uL (4.0-5.20); Red Cell Distribution Width 13.5 % (11.8-14.3); White Blood Cell 2.7 10^3/uL (4.4-10.8)
[2018-07-15 08:35] LABS: Albumin 3.5 g/dL (3.4-5.0); Calcium 8.2 mg/dL (8.5-10.1); Potassium 3.9 mmol/L (3.5-5.1)
[2018-07-15 08:44] LABS: BUN/Creatinine Ratio 32.1; Bilirubin, Total 0.6 mg/dL (0.2-1.0); Total Protein 7.1 g/dL (6.4-8.2)
== END | disposition home or self-care (01) ==
LOC: LAB 07:28
PROVIDERS: ATTEND Internal Medicine
DX: Z12.11 Encounter for screening for malignant neoplasm of colon (principal); E78.5 Hyperlipidemia, unspecified; E11.9 Type 2 diabetes mellitus without complications
CPT/HCPCS: 36415; 80053; 80061; 82043; 82306; 83036; 84443; 85025

== ENCOUNTER → 2018-08-13 | Outpatient (CLI) | payer OTHER ==
[2018-08-13 07:53] LABS: Basophils # (auto) 0 uL; Basophils % (auto) 0.5 % (0.0-2.0); Eosinophils # (auto) 0.2 uL; Eosinophils % (auto) 3.7 % (0.0-7.0); Hematocrit 40.3 % (36.0-46.0); Hemoglobin 13.6 g/dL (12.2-16.2); Lymphocytes # (auto) 1.3 uL; Mean Corpuscular Hemoglobin 28.8 pg (28.0-32.0); Mean Corpuscular Hgb Conc. 33.8 g/dL (32.0-36.0); Mean Corpuscular Volume 85.2 fL (80.0-100.0); Monocytes # (auto) 0.4 uL; Monocytes % (auto) 8.7 % (0.0-12.0); Neutrophils # (auto) 2.4 uL; Neutrophils % (auto) 56.1 % (37.0-80.0); Nucleated Red Blood Cells % 0.1 %; Platelet Count (auto) 200 10^3/uL (140-450); Red Blood Cells 4.73 10^6/uL (4.0-5.20); Red Cell Distribution Width 14.1 % (11.8-14.3); White Blood Cell 4.2 10^3/uL (4.4-10.8)
[2018-08-13 08:05] LABS: Potassium 4.3 mmol/L (3.5-5.1)
[2018-08-13 08:15] LABS: Albumin 3.7 g/dL (3.4-5.0); Bilirubin, Total 0.5 mg/dL (0.2-1.0); Calcium 8.3 mg/dL (8.5-10.1); Total Protein 7.2 g/dL (6.4-8.2)
== END | disposition home or self-care (01) ==
LOC: LAB 07:39
PROVIDERS: ATTEND Internal Medicine
DX: D72.818 Other decreased white blood cell count (principal)
CPT/HCPCS: 36415; 80053; 85025

== ENCOUNTER → 2018-10-17 | Outpatient (CLI) | payer OTHER | END | disposition home or self-care (01) | LOC: LAB 15:47 | PROVIDERS: ATTEND Internal Medicine | DX: N39.0 Urinary tract infection, site not specified (principal) | CPT/HCPCS: 87086; 87088; 87186 ==

== ENCOUNTER 2018-10-22 16:33 | Emergency (ER) | payer OTHER ==
[~2018-10-22] VITALS: Ht 154.9 cm; Wt 52.2 kg
[2018-10-23] MEDS ORDERED: cefTRIAXone 1GM/50ML D5W 50 ML IV ONE (00:30)
[2018-10-23] MEDS: PIPERACILLIN-TAZOB 3.375GM 100 ML IV ONE (01:01)
[2018-10-23 02:06] VITALS: BP 118/70
== END 2018-10-23 02:09 | disposition home or self-care (01) ==
LOC: ER 16:36
DX: N39.0 Urinary tract infection, site not specified (principal); E11.9 Type 2 diabetes mellitus without complications; I10 Essential (primary) hypertension; E78.5 Hyperlipidemia, unspecified; Z88.1 Allergy status to other antibiotic agents
CPT/HCPCS: 96365; 99283; J2543

== ENCOUNTER → 2018-11-12 | Outpatient (CLI) | payer OTHER | END | disposition home or self-care (01) | LOC: LAB 10:56 | PROVIDERS: ATTEND Urology | DX: N39.0 Urinary tract infection, site not specified (principal) | CPT/HCPCS: 87086 ==

== ENCOUNTER → 2018-12-09 | Outpatient (CLI) | payer OTHER, MEDICARE | END | disposition home or self-care (01) | LOC: LAB 08:19 | PROVIDERS: ATTEND Internal Medicine | DX: Z86.19 Personal history of other infectious and parasitic diseases (principal) | CPT/HCPCS: 87493 ==

== ENCOUNTER → 2019-01-16 | Outpatient (CLI) | payer OTHER, MEDICARE | END | disposition home or self-care (01) | LOC: LAB 14:32 | PROVIDERS: ATTEND Urology | DX: R31.29 Other microscopic hematuria (principal) | CPT/HCPCS: 87086; 87088; 87186 ==

== ENCOUNTER → 2019-02-25 | Outpatient (CLI) | payer OTHER, MEDICARE ==
[2019-02-25 09:10] LABS: Basophils # (auto) 0 uL; Basophils % (auto) 0.3 % (0.0-2.0); Eosinophils # (auto) 0.1 uL; Eosinophils % (auto) 3.4 % (0.0-7.0); Hemoglobin 13.9 g/dL (12.2-16.2); Lymphocytes # (auto) 1.1 uL; Lymphocytes % (auto) 26.5 % (10.0-50.0); Mean Corpuscular Hemoglobin 28.4 pg (28.0-32.0); Mean Corpuscular Volume 85.9 fL (80.0-100.0); Monocytes # (auto) 0.4 uL; Monocytes % (auto) 9.9 % (0.0-12.0); Neutrophils # (auto) 2.5 uL; Neutrophils % (auto) 59.9 % (37.0-80.0); Nucleated Red Blood Cells % 0.1 %; Platelet Count (auto) 193 10^3/uL (140-450); Red Blood Cells 4.89 10^6/uL (4.0-5.20); Red Cell Distribution Width 13.9 % (11.8-14.3); White Blood Cell 4.2 10^3/uL (4.4-10.8)
[2019-02-25 09:37] LABS: Urine Bacteria NONE SEEN /hpf (None Seen); Urine Blood TRACE /uL (Negative); Urine WBC <1 /hpf (0 - 5)
[2019-02-25 09:48] LABS: Potassium 3.9 mmol/L (3.5-5.1)
[2019-02-25 10:02] LABS: Albumin 3.6 g/dL (3.4-5.0); BUN/Creatinine Ratio 20.9; Bilirubin, Total 0.6 mg/dL (0.2-1.0); Calcium 8.4 mg/dL (8.5-10.1); Protein, Urine 5.9 mg/dL (0.0-11.9); Total Protein 7.2 g/dL (6.4-8.2)
== END | disposition home or self-care (01) ==
LOC: LAB 07:45
PROVIDERS: ATTEND Internal Medicine Nephrology
DX: E78.2 Mixed hyperlipidemia (principal); N02.9 Recurrent and persistent hematuria with unspecified morphologic changes; N39.0 Urinary tract infection, site not specified; I10 Essential (primary) hypertension; E11.9 Type 2 diabetes mellitus without complications
CPT/HCPCS: 36415; 80053; 81001; 82570; 84156; 85025; 85652

== ENCOUNTER → 2019-09-08 | Outpatient (CLI) | payer MEDICARE, OTHER ==
[2019-09-08 08:38] LABS: Basophils # (auto) 0 10 ^3/uL (0-0.2); Basophils % (auto) 0.7 % (0.0-2.0); Eosinophils # (auto) 0.2 10 ^3/uL (0-0.8); Eosinophils % (auto) 3.3 % (0.0-7.0); Hematocrit 44.4 % (36.0-46.0); Lymphocytes # (auto) 1.3 10 ^3/uL (0.4-5.4); Lymphocytes % (auto) 27.4 % (10.0-50.0); Mean Corpuscular Hemoglobin 29.2 pg (28.0-32.0); Mean Corpuscular Hgb Conc. 33.7 g/dL (32.0-36.0); Mean Corpuscular Volume 86.7 fL (80.0-100.0); Monocytes # (auto) 0.4 10 ^3/uL (0-1.3); Monocytes % (auto) 8.2 % (0.0-12.0); Neutrophils # (auto) 2.8 10 ^3/uL (1.6-8.6); Neutrophils % (auto) 60.4 % (37.0-80.0); Nucleated Red Blood Cells % 0.1 %; Platelet Count (auto) 198 10^3/uL (140-450); Red Blood Cells 5.12 10^6/uL (4.0-5.20); Red Cell Distribution Width 13.6 % (11.8-14.3); White Blood Cell 4.6 10^3/uL (4.4-10.8)
[2019-09-08 08:54] LABS: Potassium 4.2 mmol/L (3.5-5.1)
[2019-09-08 09:02] LABS: Micro Albumin < 5.00 mg/L (0-30.0)
[2019-09-08 09:04] LABS: BUN/Creatinine Ratio 24.2; Bilirubin, Total 0.6 mg/dL (0.2-1.0); Calcium 9.1 mg/dL (8.5-10.1); Total Protein 8.1 g/dL (6.4-8.2)
== END | disposition home or self-care (01) ==
LOC: LAB 07:25
PROVIDERS: ATTEND Internal Medicine
DX: Z12.11 Encounter for screening for malignant neoplasm of colon (principal); E11.69 Type 2 diabetes mellitus with other specified complication; I10 Essential (primary) hypertension; E78.5 Hyperlipidemia, unspecified
CPT/HCPCS: 36415; 80053; 80061; 82043; 82274; 83036; 84443; 85025

== ENCOUNTER → 2020-06-08 | Outpatient (CLI) | payer OTHER ==
[2020-06-08 16:36] LABS: Urine Blood TRACE /uL (Negative); Urine Specific Gravity 1.016 (1.001-1.035)
[2020-06-08 16:57] LABS: BUN/Creatinine Ratio 21.4; Calcium 8.2 mg/dL (8.5-10.1); Potassium 3.7 mmol/L (3.5-5.1)
== END | disposition home or self-care (01) ==
LOC: LAB 15:47
PROVIDERS: ATTEND Internal Medicine
DX: Z01.89 Encounter for other specified special examinations (principal)
CPT/HCPCS: 36415; 80048; 81003

== ENCOUNTER → 2020-06-17 | Outpatient (CLI) | payer OTHER | END | disposition home or self-care (01) | LOC: LAB 11:49 | PROVIDERS: ATTEND Internal Medicine | DX: N39.0 Urinary tract infection, site not specified (principal) | CPT/HCPCS: 87086 ==

== ENCOUNTER → 2020-09-28 | Outpatient (CLI) | payer OTHER | END | disposition home or self-care (01) | LOC: LAB 13:02 | PROVIDERS: ATTEND Family Medicine | DX: L82.1 Other seborrheic keratosis (principal) ==

== ENCOUNTER → 2020-10-05 | Outpatient (CLI) | payer OTHER | END | disposition home or self-care (01) | LOC: LAB 12:59 | PROVIDERS: ATTEND Family Medicine | DX: L82.1 Other seborrheic keratosis (principal) ==

== ENCOUNTER → 2020-10-12 | Outpatient (CLI) | payer OTHER | END | disposition home or self-care (01) | LOC: LAB 16:40 | PROVIDERS: ATTEND Family Medicine | DX: L82.1 Other seborrheic keratosis (principal) ==

== ENCOUNTER → 2020-11-01 | Outpatient (CLI) | payer OTHER ==
[2020-11-01 07:51] LABS: Basophils # (auto) 0.1 10 ^3/uL (0-0.2); Basophils % (auto) 1.2 % (0.0-2.0); Eosinophils # (auto) 0.1 10 ^3/uL (0-0.8); Eosinophils % (auto) 1.9 % (0.0-7.0); Hematocrit 41.7 % (36.0-46.0); Hemoglobin 14.1 g/dL (12.2-16.2); Lymphocytes # (auto) 1.4 10 ^3/uL (0.4-5.4); Mean Corpuscular Hgb Conc. 33.8 g/dL (32.0-36.0); Mean Corpuscular Volume 85.9 fL (80.0-100.0); Monocytes # (auto) 0.4 10 ^3/uL (0-1.3); Monocytes % (auto) 7.2 % (0.0-12.0); Neutrophils # (auto) 3.5 10 ^3/uL (1.6-8.6); Neutrophils % (auto) 63.7 % (37.0-80.0); Nucleated Red Blood Cells % 0.1 %; Platelet Count (auto) 209 10^3/uL (140-450); Red Blood Cells 4.86 10^6/uL (4.0-5.20); Red Cell Distribution Width 13.3 % (11.8-14.3); White Blood Cell 5.5 10^3/uL (4.4-10.8)
[2020-11-01 08:34] LABS: Albumin 3.8 g/dL (3.4-5.0); Potassium 3.9 mmol/L (3.5-5.1)
[2020-11-01 08:42] LABS: Bilirubin, Total 0.5 mg/dL (0.2-1.0); Calcium 8.9 mg/dL (8.5-10.1); Total Protein 7.2 g/dL (6.4-8.2)
== END | disposition home or self-care (01) ==
LOC: LAB 07:28
PROVIDERS: ATTEND Internal Medicine
DX: Z00.00 Encounter for general adult medical examination without abnormal findings (principal); Z12.11 Encounter for screening for malignant neoplasm of colon; E11.42 Type 2 diabetes mellitus with diabetic polyneuropathy; E11.69 Type 2 diabetes mellitus with other specified complication; I10 Essential (primary) hypertension; E55.9 Vitamin D deficiency, unspecified
CPT/HCPCS: 36415; 80053; 80061; 82043; 82274; 82306; 83036; 84439; 84443; 85025

== ENCOUNTER → 2021-01-31 | Outpatient (CLI) | payer OTHER ==
[2021-01-31 16:46] LABS: Basophils # (auto) 0 10 ^3/uL (0-0.2); Basophils % (auto) 0.3 % (0.0-2.0); Eosinophils # (auto) 0.1 10 ^3/uL (0-0.8); Eosinophils % (auto) 1.8 % (0.0-7.0); Hematocrit 40.2 % (36.0-46.0); Hemoglobin 13.5 g/dL (12.2-16.2); Lymphocytes # (auto) 1.7 10 ^3/uL (0.4-5.4); Lymphocytes % (auto) 30.2 % (10.0-50.0); Mean Corpuscular Hemoglobin 28.4 pg (28.0-32.0); Mean Corpuscular Hgb Conc. 33.5 g/dL (32.0-36.0); Mean Corpuscular Volume 84.9 fL (80.0-100.0); Monocytes # (auto) 0.5 10 ^3/uL (0-1.3); Monocytes % (auto) 8.9 % (0.0-12.0); Neutrophils # (auto) 3.3 10 ^3/uL (1.6-8.6); Neutrophils % (auto) 58.8 % (37.0-80.0); Nucleated Red Blood Cells % 0.1 %; Red Blood Cells 4.74 10^6/uL (4.0-5.20); Red Cell Distribution Width 13.5 % (11.8-14.3); White Blood Cell 5.7 10^3/uL (4.4-10.8)
[2021-01-31 16:51] LABS: Urine Bacteria NONE SEEN /hpf (None Seen); Urine Blood 1+ /uL (Negative); Urine Specific Gravity 1.025 (1.001-1.035); Urine WBC 2 /hpf (0 - 5)
[2021-01-31 17:18] LABS: Albumin 4.2 g/dL (3.4-5.0); Potassium 4.2 mmol/L (3.5-5.1)
[2021-01-31 17:23] LABS: BUN/Creatinine Ratio 25.4; Bilirubin, Total 0.3 mg/dL (0.2-1.0); Total Protein 7.6 g/dL (6.4-8.2)
== END | disposition home or self-care (01) ==
LOC: LAB 16:27
PROVIDERS: ATTEND Internal Medicine
DX: R10.13 Epigastric pain (principal); R18.0 Malignant ascites
CPT/HCPCS: 36415; 80053; 81001; 82150; 83690; 85025; 85652; 87086

== ENCOUNTER 2021-04-20 12:12 | Day surgery (SDC) | payer OTHER ==
[2021-04-15 09:15] LABS: Basophils # (auto) 0 10 ^3/uL (0-0.2); Basophils % (auto) 0.6 % (0.0-2.0); Eosinophils # (auto) 0.1 10 ^3/uL (0-0.8); Eosinophils % (auto) 2.3 % (0.0-7.0); Hematocrit 43.2 % (36.0-46.0); Hemoglobin 14.7 g/dL (12.2-16.2); Lymphocytes # (auto) 1.5 10 ^3/uL (0.4-5.4); Lymphocytes % (auto) 32.7 % (10.0-50.0); Mean Corpuscular Hemoglobin 29.2 pg (28.0-32.0); Mean Corpuscular Hgb Conc. 34.1 g/dL (32.0-36.0); Mean Corpuscular Volume 85.6 fL (80.0-100.0); Monocytes # (auto) 0.3 10 ^3/uL (0-1.3); Neutrophils # (auto) 2.8 10 ^3/uL (1.6-8.6); Neutrophils % (auto) 58.4 % (37.0-80.0); Nucleated Red Blood Cells % 0.1 %; Red Blood Cells 5.04 10^6/uL (4.0-5.20); Red Cell Distribution Width 13.4 % (11.8-14.3); White Blood Cell 4.7 10^3/uL (4.4-10.8)
[2021-04-15 09:35] LABS: Albumin 3.7 g/dL (3.4-5.0); BUN/Creatinine Ratio 19.1; Calcium 8.8 mg/dL (8.5-10.1)
[2021-04-15 09:38] LABS: Bilirubin, Total 0.6 mg/dL (0.2-1.0); Total Protein 7.3 g/dL (6.4-8.2)
[~2021-04-20] VITALS: Ht 154.9 cm; Wt 56.7 kg
[~2021-04-20 12:12] MED LIST changes: +GLIM2TAB33 PO; +LISI2.5T47 PO; -METF-370 PO
[2021-04-20] MEDS ORDERED: LIDOCAINE VISCOUS 2% 15ML UD ONE (12:17)
[2021-04-20] MEDS ORDERED: diphenhdrAMINE HCL 50 MG/1 ML VL ONE (12:17)
[2021-04-20] MEDS ORDERED: SODIUM CHLORIDE LOCK 10 ML ONE (12:17)
[2021-04-20] MEDS ORDERED: MIDAZOLAM HCL 5 MG/ML-1ML VIAL ONE (12:17)
[2021-04-20] MEDS ORDERED: fentaNYL CITRATE 100 MCG/2 ML VL ONE (12:18)
[2021-04-20 14:10] VITALS: BP 145/54
== END 2021-04-20 14:25 | disposition home or self-care (01) ==
LOC: GI 12:12
PROVIDERS: ATTEND Internal Medicine Gastroenterology
DX: R10.13 Epigastric pain (principal); K29.50 Unspecified chronic gastritis without bleeding; K31.89 Other diseases of stomach and duodenum; K44.9 Diaphragmatic hernia without obstruction or gangrene; K63.89 Other specified diseases of intestine; K21.9 Gastro-esophageal reflux disease without esophagitis; Z88.1 Allergy status to other antibiotic agents; Z88.8 Allergy status to other drugs, medicaments and biological substances; Z20.822 Contact with and (suspected) exposure to COVID-19; Z79.899 Other long term (current) drug therapy; Z98.890 Other specified postprocedural states; Z80.9 Family history of malignant neoplasm, unspecified
CPT/HCPCS: 36415; 43239; 80053; 82962; 85025; 88305; 88342; J1200; J2250; J3010; J7030; U0003

== ENCOUNTER → 2021-09-09 | Outpatient (CLI) | payer OTHER | END | disposition home or self-care (01) | LOC: US 09:31 | PROVIDERS: ATTEND Internal Medicine | DX: C50.112 Malignant neoplasm of central portion of left female breast (principal); Z82.49 Family history of ischemic heart disease and other diseases of the circulatory system; Z80.8 Family history of malignant neoplasm of other organs or systems | CPT/HCPCS: 19083; 76642; 76942 ==

== ENCOUNTER → 2021-10-13 | Outpatient (CLI) | payer OTHER ==
[2021-10-13 08:54] LABS: Basophils # (auto) 0 10 ^3/uL (0-0.2); Basophils % (auto) 0.5 % (0.0-2.0); Eosinophils # (auto) 0.1 10 ^3/uL (0-0.8); Hematocrit 41.1 % (36.0-46.0); Hemoglobin 13.7 g/dL (12.2-16.2); Lymphocytes # (auto) 1.4 10 ^3/uL (0.4-5.4); Lymphocytes % (auto) 34.8 % (10.0-50.0); Mean Corpuscular Hemoglobin 28.5 pg (28.0-32.0); Mean Corpuscular Hgb Conc. 33.2 g/dL (32.0-36.0); Mean Corpuscular Volume 85.8 fL (80.0-100.0); Monocytes # (auto) 0.3 10 ^3/uL (0-1.3); Monocytes % (auto) 7.5 % (0.0-12.0); Neutrophils # (auto) 2.2 10 ^3/uL (1.6-8.6); Neutrophils % (auto) 54.2 % (37.0-80.0); Nucleated Red Blood Cells % 0.1 %; Red Blood Cells 4.79 10^6/uL (4.0-5.20); Red Cell Distribution Width 13.5 % (11.8-14.3)
[2021-10-13 09:48] LABS: Albumin 3.6 g/dL (3.4-5.0); Potassium 4.5 mmol/L (3.5-5.1)
[2021-10-13 10:00] LABS: BUN/Creatinine Ratio 30.6; Bilirubin, Total 0.7 mg/dL (0.2-1.0); Calcium 9.1 mg/dL (8.5-10.1); Total Protein 7.2 g/dL (6.4-8.2)
== END | disposition home or self-care (01) ==
LOC: LAB 07:21
PROVIDERS: ATTEND Internal Medicine
DX: Z00.00 Encounter for general adult medical examination without abnormal findings (principal); E11.42 Type 2 diabetes mellitus with diabetic polyneuropathy; I10 Essential (primary) hypertension; E55.9 Vitamin D deficiency, unspecified
CPT/HCPCS: 36415; 80053; 80061; 82043; 82306; 83036; 85025

== ENCOUNTER → 2021-11-28 | Outpatient (CLI) | payer OTHER | END | disposition home or self-care (01) | LOC: XYW 15:43 | PROVIDERS: ATTEND Internal Medicine | DX: Z01.810 Encounter for preprocedural cardiovascular examination (principal); I07.1 Rheumatic tricuspid insufficiency | CPT/HCPCS: 93306 ==

== ENCOUNTER → 2021-12-06 | Outpatient (CLI) | payer OTHER ==
[~2021-12-06] VITALS: Ht 152.4 cm; Wt 54.4 kg
[~2021-12-06] MED LIST changes: +fentaNYL CITRATE 100 MCG/2 ML VL ONE; +levoFLOXacin 500MG 100 ML IV ONE
[2021-12-06 13:27] LABS: Basophils # (auto) 0 10 ^3/uL (0-0.2); Basophils % (auto) 0.2 % (0.0-2.0); Eosinophils # (auto) 0.1 10 ^3/uL (0-0.8); Eosinophils % (auto) 1.3 % (0.0-7.0); Hematocrit 39.7 % (36.0-46.0); Hemoglobin 13.6 g/dL (12.2-16.2); Lymphocytes # (auto) 1.2 10 ^3/uL (0.4-5.4); Lymphocytes % (auto) 16.3 % (10.0-50.0); Mean Corpuscular Hemoglobin 28.9 pg (28.0-32.0); Mean Corpuscular Hgb Conc. 34.3 g/dL (32.0-36.0); Mean Corpuscular Volume 84.3 fL (80.0-100.0); Monocytes # (auto) 0.5 10 ^3/uL (0-1.3); Monocytes % (auto) 6.7 % (0.0-12.0); Neutrophils # (auto) 5.5 10 ^3/uL (1.6-8.6); Neutrophils % (auto) 75.5 % (37.0-80.0); Red Blood Cells 4.71 10^6/uL (4.0-5.20); Red Cell Distribution Width 12.8 % (11.8-14.3); White Blood Cell 7.3 10^3/uL (4.4-10.8)
[2021-12-06 13:39] LABS: Urine Bacteria NONE SEEN /hpf (None Seen); Urine Blood TRACE /uL (Negative); Urine Hyaline Cast MANY /lpf (0 - 2); Urine Specific Gravity 1.021 (1.001-1.035); Urine WBC <1 /hpf (0 - 5)
[2021-12-06 13:51] LABS: INR 0.99 (0.9-1.15); Partial Thromboplastin Time 26.2 sec (23.6-33.0)
[2021-12-06 13:54] LABS: Albumin 3.5 g/dL (3.4-5.0); BUN/Creatinine Ratio 23.6; Calcium 8.5 mg/dL (8.5-10.1); Potassium 3.8 mmol/L (3.5-5.1)
[2021-12-06 13:56] LABS: Bilirubin, Total 0.4 mg/dL (0.2-1.0)
[2021-12-07 09:35] VITALS: BP 123/69
== END | disposition home or self-care (01) ==
LOC: SUR 12:31 → EDSTATUS 12-07 10:31
PROVIDERS: ATTEND Surgery
DX: N63.20 Unspecified lump in the left breast, unspecified quadrant (principal); C50.912 Malignant neoplasm of unspecified site of left female breast; Z53.8 Procedure and treatment not carried out for other reasons; Z88.0 Allergy status to penicillin; Z88.1 Allergy status to other antibiotic agents; Z88.8 Allergy status to other drugs, medicaments and biological substances; Z20.822 Contact with and (suspected) exposure to COVID-19; Z82.49 Family history of ischemic heart disease and other diseases of the circulatory system; Z80.8 Family history of malignant neoplasm of other organs or systems; Z82.69 Family history of other diseases of the musculoskeletal system and connective tissue
CPT/HCPCS: 36415; 80053; 81001; 85025; 85610; 85730; 86850; 86900; 86901; U0003; 82962; J1956

== ENCOUNTER 2022-01-18 07:15 | Inpatient (IN) | payer OTHER ==
[2022-01-16 11:45] LABS: Basophils # (auto) 0 10 ^3/uL (0-0.2); Basophils % (auto) 0.4 % (0.0-2.0); Eosinophils # (auto) 0.1 10 ^3/uL (0-0.8); Eosinophils % (auto) 1.8 % (0.0-7.0); Hematocrit 41.2 % (36.0-46.0); Hemoglobin 13.6 g/dL (12.2-16.2); INR 0.95 (0.9-1.15); Lymphocytes # (auto) 1.5 10 ^3/uL (0.4-5.4); Lymphocytes % (auto) 27.6 % (10.0-50.0); Mean Corpuscular Hemoglobin 28.1 pg (28.0-32.0); Mean Corpuscular Hgb Conc. 33.1 g/dL (32.0-36.0); Mean Corpuscular Volume 85.1 fL (80.0-100.0); Monocytes # (auto) 0.4 10 ^3/uL (0-1.3); Monocytes % (auto) 7.7 % (0.0-12.0); Neutrophils # (auto) 3.3 10 ^3/uL (1.6-8.6); Neutrophils % (auto) 62.5 % (37.0-80.0); Nucleated Red Blood Cells % 0.1 %; Partial Thromboplastin Time 26.6 sec (24.6-33.4); Red Blood Cells 4.84 10^6/uL (4.0-5.20); Red Cell Distribution Width 13.3 % (11.8-14.3); Urine Bacteria NONE SEEN /hpf (None Seen); Urine Blood Negative /uL (Negative); Urine Specific Gravity 1.026 (1.001-1.035); Urine WBC 15 /hpf (0 - 5); White Blood Cell 5.2 10^3/uL (4.4-10.8)
[2022-01-16 13:36] LABS: Albumin 3.8 g/dL (3.4-5.0); Calcium 8.6 mg/dL (8.5-10.1); Potassium 3.8 mmol/L (3.5-5.1)
[2022-01-16 13:39] LABS: BUN/Creatinine Ratio 37.3; Bilirubin, Total 0.5 mg/dL (0.2-1.0); Total Protein 7.4 g/dL (6.4-8.2)
[2022-01-17 20:30] VITALS: BP 117/45
[~2022-01-18] VITALS: Ht 152.4 cm; Wt 57.2 kg
[~2022-01-18 07:15] MED LIST changes: -fentaNYL CITRATE 100 MCG/2 ML VL ONE; -levoFLOXacin 500MG 100 ML IV ONE
[2022-01-18] MEDS ORDERED: levoFLOXacin 500MG 100 ML IV ONE (07:54)
[2022-01-18] MEDS ORDERED: ROCURONIUM 10MG/ML 10ML VIAL IV ONE (08:08)
[2022-01-18] MEDS ORDERED: MIDAZOLAM HCL 2MG/2ML 2ml VIAL (1mg/ml) ONE (08:08)
[2022-01-18] MEDS ORDERED: fentaNYL CITRATE 100 MCG/2 ML VL ONE ×2 (08:08→09:50)
[2022-01-18] MEDS ORDERED: BUPIVACAINE 0.25% INJ 50ML VIAL ONE (09:15)
[2022-01-18] MEDS ORDERED: D5W/SOD CHL 0.45%/KCL 20MEQ 1,000 ML IV SCH (09:30)
[2022-01-18] MEDS ORDERED: ONDANSETRON HCL 4 MG/2 ML VIAL IV PRN ×2 (09:30→09:45)
[2022-01-18] MEDS ORDERED: HYDROmorphone HCL 2 MG/ML VL/or syr IV PRN ×4 (09:30→15:30)
[2022-01-18] MEDS: levoFLOXacin 500MG 100 ML IV SCH (10:00)
[2022-01-18] MEDS ORDERED: PROPOFOL 10 MG/ML 20 ML IV ONE (10:05)
[2022-01-18] MEDS ORDERED: NITROGLYCERIN 0.4 MG SL TAB SL PRN (10:45)
[2022-01-18] MEDS ORDERED: MORPHINE SULFATE INJ 2 MG/ml SYRG IV PRN (10:45)
[2022-01-18] MEDS ORDERED: GLYCOPYRROLATE 0.2 MG/ML 1ML VIAL IV ONE (11:23)
[2022-01-18] MEDS ORDERED: NEOSTIGMINE 1 MG/ML INJ (10mg/10ML VIAL) IV ONE (11:23)
[2022-01-18] MEDS: PANTOPRAZOLE 40 MG/10 ML VIAL INJ IV SCH (11:47)
[2022-01-18] MEDS: ACETAMINOPHEN/CODEINE#3 (300/30mg) TAB PO PRN (13:52)
[2022-01-18] MEDS ORDERED: DEXTROSE (50%) 50ML SYRG IV PRN (15:30)
[2022-01-18] MEDS ORDERED: HYDROcodone-ACET 5/325MG TAB PO PRN (15:30)
[2022-01-18] MEDS: D5W/SOD CHL 0.45%/KCL 20MEQ 1,000 ML IV SCH ×2 (15:30→21:15)
[2022-01-18] MEDS ORDERED: LISINOPRIL 5 MG TAB PO ONE (15:30)
[2022-01-18] MEDS: InsuLIN REG 1unit/0.01ml Soln (100units/ml) SC SCH ×2 (16:40→22:00)
[2022-01-18] MEDS: ACCU-CHEK COMFORT CURVE STRIP VI SCH ×2 (16:40→22:00)
[2022-01-18 20:56] VITALS: BP 117/45
[2022-01-18 21:00] VITALS: BP 117/45
[2022-01-18] MEDS ORDERED: MULT-1018 PO (21:12)
[2022-01-18 22:57] VITALS: BP 145/37
[2022-01-19 05:13] VITALS: BP 133/57
[2022-01-19 05:22] LABS: Basophils # (auto) 0 10 ^3/uL (0-0.2); Basophils % (auto) 0.2 % (0.0-2.0); Eosinophils # (auto) 0.1 10 ^3/uL (0-0.8); Eosinophils % (auto) 1.2 % (0.0-7.0); Hematocrit 35.4 % (36.0-46.0); Hemoglobin 11.7 g/dL (12.2-16.2); Lymphocytes # (auto) 1.6 10 ^3/uL (0.4-5.4); Lymphocytes % (auto) 24.6 % (10.0-50.0); Mean Corpuscular Hemoglobin 28.1 pg (28.0-32.0); Mean Corpuscular Volume 85.2 fL (80.0-100.0); Monocytes # (auto) 0.6 10 ^3/uL (0-1.3); Monocytes % (auto) 9.7 % (0.0-12.0); Neutrophils # (auto) 4.1 10 ^3/uL (1.6-8.6); Neutrophils % (auto) 64.3 % (37.0-80.0); Red Blood Cells 4.15 10^6/uL (4.0-5.20); Red Cell Distribution Width 13.5 % (11.8-14.3); White Blood Cell 6.3 10^3/uL (4.4-10.8)
[2022-01-19 05:40] LABS: Calcium 8.2 mg/dL (8.5-10.1); Potassium 4.1 mmol/L (3.5-5.1)
[2022-01-19 05:42] LABS: BUN/Creatinine Ratio 12.5
[2022-01-19] MEDS: InsuLIN REG 1unit/0.01ml Soln (100units/ml) SC SCH ×4 (07:00→21:25)
[2022-01-19] MEDS: ACCU-CHEK COMFORT CURVE STRIP VI SCH ×4 (07:07→21:16)
[2022-01-19 08:00] VITALS: BP 127/51
[2022-01-19] MEDS: PANTOPRAZOLE 40 MG/10 ML VIAL INJ IV SCH (09:40)
[2022-01-19] MEDS: levoFLOXacin 500MG 100 ML IV SCH (09:40)
[2022-01-19] MEDS: LISINOPRIL 5 MG TAB PO SCH (09:43)
[2022-01-19] MEDS: ACETAMINOPHEN/CODEINE#3 (300/30mg) TAB PO PRN (11:40)
[2022-01-19] MEDS: D5W/SOD CHL 0.45%/KCL 20MEQ 1,000 ML IV SCH ×2 (11:40→21:44)
[2022-01-19 12:00] VITALS: BP 113/50
[2022-01-19 16:00] VITALS: BP 118/52
[2022-01-19 22:24] VITALS: BP 129/55
[2022-01-20 05:09] VITALS: BP 138/61
[2022-01-20] MEDS: InsuLIN REG 1unit/0.01ml Soln (100units/ml) SC SCH ×2 (06:14→11:30)
[2022-01-20] MEDS: ACCU-CHEK COMFORT CURVE STRIP VI SCH ×2 (06:14→11:53)
[2022-01-20] MEDS: D5W/SOD CHL 0.45%/KCL 20MEQ 1,000 ML IV SCH (07:30)
[2022-01-20 07:35] VITALS: BP 127/60
[2022-01-20 08:00] VITALS: BP 127/60
[2022-01-20] MEDS: ACETAMINOPHEN/CODEINE#3 (300/30mg) TAB PO PRN (08:55)
[2022-01-20] MEDS: LISINOPRIL 5 MG TAB PO SCH (08:55)
[2022-01-20] MEDS: levoFLOXacin 500MG 100 ML IV SCH (08:55)
[2022-01-20] MEDS: PANTOPRAZOLE 40 MG/10 ML VIAL INJ IV SCH (08:55)
[2022-01-20 12:00] VITALS: BP 117/55
[2022-01-20 12:52] VITALS: BP 127/60
== END 2022-01-20 14:18 | disposition home health service (06) | DRG 583 ==
LOC: SUR 07:15 → TELE 10:37 → TELE-EAST 19:20 → EAST 01-20 07:34
PROVIDERS: ADMIT Internal Medicine; ATTEND Internal Medicine
PROC: 0HTU0ZZ Resection of Left Breast, Open Approach (ICD-10-PCS; 2022-01-18)
PROC: 0KT Muscles, Resection (ICD-10-PCS; 2022-01-18)
PROC: 07T60ZZ Resection of Left Axillary Lymphatic, Open Approach (ICD-10-PCS; principal; 2022-01-18 08:07)
DX: C50.912 Malignant neoplasm of unspecified site of left female breast (principal); E11.9 Type 2 diabetes mellitus without complications; I10 Essential (primary) hypertension; E78.5 Hyperlipidemia, unspecified; Z20.822 Contact with and (suspected) exposure to COVID-19
CPT/HCPCS: 36415; 80048; 80053; 81001; 82962; 85025; 85610; 85730; 86850; 86900; 86901; C9113; G0378; J1815; J1956; J2250; J2704; J3490

== ENCOUNTER → 2022-04-27 | Outpatient (CLI) | payer OTHER ==
[~2022-04-27] MED LIST changes: +MULT-1018 PO
[2022-04-27 08:11] LABS: Basophils # (auto) 0 10 ^3/uL (0-0.2); Basophils % (auto) 0.5 % (0.0-2.0); Eosinophils # (auto) 0.1 10 ^3/uL (0-0.8); Eosinophils % (auto) 3.1 % (0.0-7.0); Hematocrit 41.2 % (36.0-46.0); Hemoglobin 13.4 g/dL (12.2-16.2); Lymphocytes # (auto) 1.4 10 ^3/uL (0.4-5.4); Lymphocytes % (auto) 32.2 % (10.0-50.0); Mean Corpuscular Hgb Conc. 32.6 g/dL (32.0-36.0); Mean Corpuscular Volume 85.8 fL (80.0-100.0); Monocytes # (auto) 0.3 10 ^3/uL (0-1.3); Monocytes % (auto) 7.9 % (0.0-12.0); Neutrophils # (auto) 2.4 10 ^3/uL (1.6-8.6); Neutrophils % (auto) 56.3 % (37.0-80.0); Nucleated Red Blood Cells % 0.1 %; Red Cell Distribution Width 13.9 % (11.8-14.3); White Blood Cell 4.2 10^3/uL (4.4-10.8)
[2022-04-27 09:18] LABS: Potassium 4.2 mmol/L (3.5-5.1)
[2022-04-27 09:27] LABS: Albumin 3.7 g/dL (3.4-5.0); BUN/Creatinine Ratio 22.6; Bilirubin, Total 0.9 mg/dL (0.2-1.0); Calcium 8.7 mg/dL (8.5-10.1)
== END | disposition home or self-care (01) ==
LOC: LAB 07:51
PROVIDERS: ATTEND Internal Medicine
DX: C50.912 Malignant neoplasm of unspecified site of left female breast (principal); Z88.8 Allergy status to other drugs, medicaments and biological substances; Z88.1 Allergy status to other antibiotic agents
CPT/HCPCS: 36415; 80053; 83615; 85025; 86300

== ENCOUNTER → 2022-08-28 | Outpatient (CLI) | payer OTHER ==
[2022-08-28 08:48] LABS: Basophils # (auto) 0 10 ^3/uL (0-0.2); Basophils % (auto) 0.5 % (0.0-2.0); Eosinophils # (auto) 0.1 10 ^3/uL (0-0.8); Eosinophils % (auto) 2.9 % (0.0-7.0); Hematocrit 40.4 % (36.0-46.0); Lymphocytes # (auto) 1.5 10 ^3/uL (0.4-5.4); Lymphocytes % (auto) 34.8 % (10.0-50.0); Mean Corpuscular Hemoglobin 29.7 pg (28.0-32.0); Mean Corpuscular Hgb Conc. 34.7 g/dL (32.0-36.0); Mean Corpuscular Volume 85.6 fL (80.0-100.0); Monocytes # (auto) 0.3 10 ^3/uL (0-1.3); Monocytes % (auto) 7.5 % (0.0-12.0); Neutrophils # (auto) 2.4 10 ^3/uL (1.6-8.6); Neutrophils % (auto) 54.3 % (37.0-80.0); Nucleated Red Blood Cells % 0.1 %; Red Blood Cells 4.72 10^6/uL (4.0-5.20); Red Cell Distribution Width 13.5 % (11.8-14.3); White Blood Cell 4.4 10^3/uL (4.4-10.8)
[2022-08-28 10:02] LABS: Potassium 4.2 mmol/L (3.5-5.1)
[2022-08-28 10:08] LABS: BUN/Creatinine Ratio 22.5; Bilirubin, Total 0.6 mg/dL (0.2-1.0); Total Protein 7.3 g/dL (6.4-8.2)
== END | disposition home or self-care (01) ==
LOC: LAB 07:56
PROVIDERS: ATTEND Internal Medicine
DX: C50.912 Malignant neoplasm of unspecified site of left female breast (principal)
CPT/HCPCS: 36415; 80053; 83615; 85025; 86300

== ENCOUNTER → 2022-10-30 | Outpatient (CLI) | payer OTHER ==
[2022-10-30 08:30] LABS: Basophils # (auto) 0 10 ^3/uL (0-0.2); Basophils % (auto) 0.6 % (0.0-2.0); Eosinophils # (auto) 0.1 10 ^3/uL (0-0.8); Eosinophils % (auto) 2.1 % (0.0-7.0); Lymphocytes # (auto) 1.4 10 ^3/uL (0.4-5.4); Lymphocytes % (auto) 27.7 % (10.0-50.0); Mean Corpuscular Hemoglobin 28.6 pg (28.0-32.0); Mean Corpuscular Hgb Conc. 33.2 g/dL (32.0-36.0); Mean Corpuscular Volume 86.1 fL (80.0-100.0); Monocytes # (auto) 0.3 10 ^3/uL (0-1.3); Monocytes % (auto) 6.6 % (0.0-12.0); Neutrophils # (auto) 3.3 10 ^3/uL (1.6-8.6); Nucleated Red Blood Cells % 0.1 %; Red Blood Cells 4.88 10^6/uL (4.0-5.20); Red Cell Distribution Width 13.1 % (11.8-14.3); White Blood Cell 5.2 10^3/uL (4.4-10.8)
[2022-10-30 08:58] LABS: Albumin 3.4 g/dL (3.4-5.0); Calcium 9.1 mg/dL (8.5-10.1); Potassium 4.1 mmol/L (3.5-5.1)
[2022-10-30 09:03] LABS: BUN/Creatinine Ratio 20.9 (10.0-20.0); Bilirubin, Total 0.4 mg/dL (0.2-1.0); Total Protein 6.9 g/dL (6.4-8.2)
== END | disposition home or self-care (01) ==
LOC: LAB 07:50
PROVIDERS: ATTEND Internal Medicine
DX: C50.912 Malignant neoplasm of unspecified site of left female breast (principal)
CPT/HCPCS: 36415; 80053; 83615; 85025; 86300

== ENCOUNTER → 2022-10-31 | Outpatient (CLI) | payer OTHER ==
[2022-10-31 08:14] LABS: Cholesterol 127 mg/dL (< 200); HDL Cholesterol 43 mg/dL (40-59); LDL Cholesterol 67 mg/dL (< 100); Triglycerides 262 mg/dL (< 150)
[2022-10-31 08:54] LABS: Free T3 3.01 pg/mL (2.3-4.2); Free T4 (Free Thyroxine) 0.85 ng/dL (0.89-1.76)
[2022-10-31 12:22] LABS: Micro Albumin 7.12 mg/L (0-30.0)
== END | disposition home or self-care (01) ==
LOC: LAB 07:16
PROVIDERS: ATTEND Internal Medicine
DX: Z00.00 Encounter for general adult medical examination without abnormal findings (principal); Z12.11 Encounter for screening for malignant neoplasm of colon; E11.42 Type 2 diabetes mellitus with diabetic polyneuropathy; E78.5 Hyperlipidemia, unspecified
CPT/HCPCS: 36415; 80061; 82043; 82274; 82306; 83036; 84439; 84443; 84481

== ENCOUNTER → 2023-01-16 | Outpatient (CLI) | payer OTHER ==
[2023-01-16 10:51] LABS: Basophils # (auto) 0 10 ^3/uL (0-0.2); Basophils % (auto) 0.4 % (0.0-2.0); Eosinophils # (auto) 0.1 10 ^3/uL (0-0.8); Eosinophils % (auto) 1.6 % (0.0-7.0); Hematocrit 40.2 % (36.0-46.0); Hemoglobin 13.3 g/dL (12.2-16.2); Lymphocytes # (auto) 1.5 10 ^3/uL (0.4-5.4); Lymphocytes % (auto) 27.7 % (10.0-50.0); Mean Corpuscular Hemoglobin 28.3 pg (28.0-32.0); Mean Corpuscular Hgb Conc. 33.2 g/dL (32.0-36.0); Mean Corpuscular Volume 85.2 fL (80.0-100.0); Monocytes # (auto) 0.3 10 ^3/uL (0-1.3); Monocytes % (auto) 6.2 % (0.0-12.0); Neutrophils # (auto) 3.4 10 ^3/uL (1.6-8.6); Neutrophils % (auto) 64.1 % (37.0-80.0); Nucleated Red Blood Cells % 0.1 %; Red Blood Cells 4.72 10^6/uL (4.0-5.20); Red Cell Distribution Width 13.2 % (11.8-14.3); White Blood Cell 5.4 10^3/uL (4.4-10.8)
[2023-01-16 11:41] LABS: Albumin 3.5 g/dL (3.4-5.0); Calcium 8.4 mg/dL (8.5-10.1); Magnesium 2.4 mg/dL (1.6-2.6); Potassium 3.6 mmol/L (3.5-5.1)
[2023-01-16 11:43] LABS: BUN/Creatinine Ratio 31.8 (10.0-20.0)
[2023-01-16 11:45] LABS: Bilirubin, Total 0.4 mg/dL (0.2-1.0)
[2023-01-16 11:49] LABS: Ferritin 148.6 ng/mL (10-322); Folate (Folic Acid) > 24.00 ng/mL (5.38-24)
== END | disposition home or self-care (01) ==
LOC: LAB 10:14
PROVIDERS: ATTEND Internal Medicine
DX: C50.912 Malignant neoplasm of unspecified site of left female breast (principal); Z88.8 Allergy status to other drugs, medicaments and biological substances
CPT/HCPCS: 36415; 80053; 82306; 82607; 82728; 82746; 83540; 83615; 83735; 85025; 86300

== ENCOUNTER → 2023-01-23 | Outpatient (CLI) | payer OTHER ==
[2023-01-23 08:29] LABS: Free T3 2.97 pg/mL (2.3-4.2); Free T4 (Free Thyroxine) 0.86 ng/dL (0.89-1.76)
== END | disposition home or self-care (01) ==
LOC: LAB 07:27
PROVIDERS: ATTEND Internal Medicine
DX: R94.6 Abnormal results of thyroid function studies (principal); R79.89 Other specified abnormal findings of blood chemistry
CPT/HCPCS: 36415; 84439; 84443; 84481

== ENCOUNTER → 2023-05-29 | Outpatient (CLI) | payer OTHER ==
[2023-05-29 07:54] LABS: Basophils # (auto) 0 10 ^3/uL (0-0.2); Basophils % (auto) 0.4 % (0.0-2.0); Eosinophils # (auto) 0.2 10 ^3/uL (0-0.8); Eosinophils % (auto) 3.2 % (0.0-7.0); Hematocrit 42.4 % (36.0-46.0); Hemoglobin 14.2 g/dL (12.2-16.2); Lymphocytes # (auto) 1.9 10 ^3/uL (0.4-5.4); Lymphocytes % (auto) 36.9 % (10.0-50.0); Mean Corpuscular Hemoglobin 28.8 pg (28.0-32.0); Mean Corpuscular Hgb Conc. 33.6 g/dL (32.0-36.0); Mean Corpuscular Volume 85.6 fL (80.0-100.0); Monocytes # (auto) 0.3 10 ^3/uL (0-1.3); Monocytes % (auto) 6.9 % (0.0-12.0); Neutrophils # (auto) 2.7 10 ^3/uL (1.6-8.6); Neutrophils % (auto) 52.6 % (37.0-80.0); Nucleated Red Blood Cells % 0.1 %; Red Blood Cells 4.95 10^6/uL (4.0-5.20); Red Cell Distribution Width 13.7 % (11.8-14.3); White Blood Cell 5.1 10^3/uL (4.4-10.8)
[2023-05-29 09:29] LABS: Alanine Aminotransferase 73 U/L (7-40); Albumin 4.7 g/dL (3.2-4.8); Alkaline Phosphatase 83 U/L (46-116); Anion Gap 7 (5-15); Aspartate Aminotransferase 41 U/L (13-40); BUN/Creatinine Ratio 19.4 (10.0-20.0); Blood Urea Nitrogen 12 mg/dL (9-23); Calcium 9.4 mg/dL (8.5-10.1); Carbon Dioxide 27 mmol/L (20-30); Chloride 109 mmol/L (98-107); Creatine Kinase IFCC 79 U/L (34-145); Glucose 111 mg/dL (74-106); Potassium 4.1 mmol/L (3.5-5.1); Sodium 143 mmol/L (136-145)
[2023-05-29 09:30] LABS: Bilirubin, Total 0.5 mg/dL (0.2-1.0); Total Protein 7.2 g/dL (5.7-8.2)
== END | disposition home or self-care (01) ==
LOC: LAB 07:18
PROVIDERS: ATTEND Psychiatry & Neurology Neurology
DX: C50.912 Malignant neoplasm of unspecified site of left female breast (principal); G44.209 Tension-type headache, unspecified, not intractable; M79.10 Myalgia, unspecified site; Z79.899 Other long term (current) drug therapy
CPT/HCPCS: 36415; 80053; 82550; 82607; 84443; 85025; 86300

== ENCOUNTER → 2023-09-28 | Outpatient (CLI) | payer OTHER ==
[2023-09-28 08:40] LABS: Alanine Aminotransferase 56 U/L (7-40); Albumin 4.4 g/dL (3.2-4.8); Alkaline Phosphatase 85 U/L (46-116); Anion Gap 7 (5-15); Aspartate Aminotransferase 38 U/L (13-40); BUN/Creatinine Ratio 17.1 (10.0-20.0); Blood Urea Nitrogen 13 mg/dL (9-23); Calcium 9.4 mg/dL (8.5-10.1); Carbon Dioxide 30 mmol/L (20-30); Chloride 108 mmol/L (98-107); Glucose 115 mg/dL (74-106); LDL Cholesterol 75 mg/dL (< 100); Potassium 4.3 mmol/L (3.5-5.1); Sodium 145 mmol/L (136-145); Triglycerides 284 mg/dL (< 150)
[2023-09-28 08:41] LABS: Bilirubin, Total 0.6 mg/dL (0.2-1.0); Cholesterol 150 mg/dL (< 200); HDL Cholesterol 49 mg/dL (40-59); Total Protein 7.1 g/dL (5.7-8.2)
[2023-09-28 08:59] LABS: Urine Bacteria FEW /hpf (None Seen); Urine Blood Negative /uL (Negative); Urine Clarity Clear (Clear); Urine Color Yellow (Yellow); Urine Protein, UAD Negative (Negative); Urine Specific Gravity 1.019 (1.001-1.035); Urine Urobilinogen Normal (Negative); Urine WBC 1 /hpf (0 - 5); Urine pH 5.5 (5.0-8.0)
[2023-09-28 09:21] LABS: Creatinine, Urine 112.51 mg/dL (30.0-125.0)
[2023-09-28 09:23] LABS: Micro Albumin < 3.0 mg/L (<30.0)
== END | disposition home or self-care (01) ==
LOC: LAB 07:48
PROVIDERS: ATTEND Internal Medicine
DX: Z00.01 Encounter for general adult medical examination with abnormal findings (principal); E11.69 Type 2 diabetes mellitus with other specified complication; E11.42 Type 2 diabetes mellitus with diabetic polyneuropathy; E55.9 Vitamin D deficiency, unspecified
CPT/HCPCS: 36415; 80053; 80061; 81001; 82043; 82306; 82570; 83036; 84439; 84443

== ENCOUNTER → 2023-12-24 | Outpatient (CLI) | payer OTHER ==
[~2023-12-24] MED LIST changes: -ATO40T PO; +ATOR-507 PO
[2023-12-24 07:36] LABS: Basophils # (auto) 0 10 ^3/uL (0-0.2); Basophils % (auto) 0.5 % (0.0-2.0); Eosinophils # (auto) 0.2 10 ^3/uL (0-0.8); Eosinophils % (auto) 3.3 % (0.0-7.0); Hematocrit 40.3 % (36.0-46.0); Hemoglobin 13.4 g/dL (12.2-16.2); Lymphocytes # (auto) 1.6 10 ^3/uL (0.4-5.4); Lymphocytes % (auto) 32.5 % (10.0-50.0); Mean Corpuscular Hemoglobin 28.7 pg (28.0-32.0); Mean Corpuscular Hgb Conc. 33.2 g/dL (32.0-36.0); Mean Corpuscular Volume 86.4 fL (80.0-100.0); Monocytes # (auto) 0.4 10 ^3/uL (0-1.3); Monocytes % (auto) 7.7 % (0.0-12.0); Neutrophils # (auto) 2.8 10 ^3/uL (1.6-8.6); Red Blood Cells 4.67 10^6/uL (4.0-5.20); Red Cell Distribution Width 13.3 % (11.8-14.3)
[2023-12-24 08:00] LABS: Alanine Aminotransferase 33 U/L (7-40); Albumin 4.4 g/dL (3.2-4.8); Alkaline Phosphatase 92 U/L (46-116); Anion Gap 7 (5-15); Aspartate Aminotransferase 28 U/L (13-40); BUN/Creatinine Ratio 25.9 (10.0-20.0); Blood Urea Nitrogen 14 mg/dL (9-23); Calcium 9.5 mg/dL (8.5-10.1); Carbon Dioxide 24 mmol/L (20-30); Chloride 109 mmol/L (98-107); Glucose 114 mg/dL (74-106); Potassium 4.1 mmol/L (3.5-5.1); Sodium 140 mmol/L (136-145)
[2023-12-24 08:01] LABS: Bilirubin, Total 0.5 mg/dL (0.2-1.0); Total Protein 6.8 g/dL (5.7-8.2)
== END | disposition home or self-care (01) ==
LOC: LAB 06:57
PROVIDERS: ATTEND Internal Medicine
DX: Z12.11 Encounter for screening for malignant neoplasm of colon (principal); I10 Essential (primary) hypertension; R74.01 Elevation of levels of liver transaminase levels; R94.4 Abnormal results of kidney function studies
CPT/HCPCS: 36415; 80053; 82274; 85025

== ENCOUNTER → 2024-04-14 | Outpatient (CLI) | payer OTHER ==
[2024-04-14 07:48] LABS: Alanine Aminotransferase 34 U/L (7-40); Alkaline Phosphatase 87 U/L (46-116); Anion Gap 8 (5-15); Blood Urea Nitrogen 17 mg/dL (9-23); Calcium 9.9 mg/dL (8.7-10.4); Carbon Dioxide 26 mmol/L (20-31); Chloride 108 mmol/L (98-107); Glucose 98 mg/dL (74-106); LDL Cholesterol 91 mg/dL (< 100); Potassium 4.2 mmol/L (3.5-5.1); Sodium 142 mmol/L (136-145); Triglycerides 211 mg/dL (< 150)
[2024-04-14 07:49] LABS: Albumin 4.7 g/dL (3.2-4.8); Aspartate Aminotransferase 27 U/L (13-40); Cholesterol 169 mg/dL (< 200); HDL Cholesterol 47 mg/dL (40-59)
[2024-04-14 07:50] LABS: Bilirubin, Total 0.9 mg/dL (0.2-1.0); Total Protein 7.2 g/dL (5.7-8.2)
== END | disposition home or self-care (01) ==
LOC: LAB 06:38
PROVIDERS: ATTEND Internal Medicine
DX: I10 Essential (primary) hypertension (principal); E78.2 Mixed hyperlipidemia; E11.69 Type 2 diabetes mellitus with other specified complication
CPT/HCPCS: 36415; 80053; 80061; 83036

== ENCOUNTER → 2024-06-02 | Outpatient (CLI) | payer OTHER ==
[2024-06-02 08:32] LABS: Basophils # (auto) 0 10 ^3/uL (0-0.2); Basophils % (auto) 0.5 % (0.0-2.0); Eosinophils # (auto) 0.1 10 ^3/uL (0-0.8); Eosinophils % (auto) 3.2 % (0.0-7.0); Hemoglobin 14.9 g/dL (12.2-16.2); Lymphocytes # (auto) 1.5 10 ^3/uL (0.4-5.4); Lymphocytes % (auto) 36.1 % (10.0-50.0); Mean Corpuscular Hemoglobin 29.2 pg (28.0-32.0); Mean Corpuscular Hgb Conc. 33.8 g/dL (32.0-36.0); Mean Corpuscular Volume 86.2 fL (80.0-100.0); Monocytes # (auto) 0.3 10 ^3/uL (0-1.3); Monocytes % (auto) 8.2 % (0.0-12.0); Neutrophils # (auto) 2.2 10 ^3/uL (1.6-8.6); Nucleated Red Blood Cells % 0.3 %; Platelet Count (auto) 200 10^3/uL (140-450); Red Cell Distribution Width 13.5 % (11.8-14.3); White Blood Cell 4.2 10^3/uL (4.4-10.8)
[2024-06-02 08:54] LABS: Alanine Aminotransferase 59 U/L (7-40); Albumin 4.7 g/dL (3.2-4.8); Alkaline Phosphatase 84 U/L (46-116); Anion Gap 8 (5-15); Aspartate Aminotransferase 39 U/L (13-40); BUN/Creatinine Ratio 18.3 (10.0-20.0); Bilirubin, Total 0.8 mg/dL (0.2-1.0); Blood Urea Nitrogen 13 mg/dL (9-23); Calcium 9.9 mg/dL (8.7-10.4); Carbon Dioxide 27 mmol/L (20-31); Chloride 107 mmol/L (98-107); Glucose 112 mg/dL (74-106); Potassium 4.1 mmol/L (3.5-5.1); Sodium 142 mmol/L (136-145)
== END | disposition home or self-care (01) ==
LOC: LAB 07:12
PROVIDERS: ATTEND Internal Medicine
DX: C50.912 Malignant neoplasm of unspecified site of left female breast (principal); Z79.899 Other long term (current) drug therapy
CPT/HCPCS: 36415; 80053; 83615; 85025; 86300

== ENCOUNTER → 2024-08-04 | Outpatient (CLI) | payer OTHER ==
[2024-08-04 08:07] LABS: Urine Bacteria None Seen /hpf (None Seen)
[2024-08-04 08:13] LABS: Basophils # (auto) 0 10 ^3/uL (0-0.2); Basophils % (auto) 0.4 % (0.0-2.0); Eosinophils # (auto) 0.1 10 ^3/uL (0-0.8); Eosinophils % (auto) 2.6 % (0.0-7.0); Hematocrit 43.1 % (36.0-46.0); Hemoglobin 14.5 g/dL (12.2-16.2); Lymphocytes # (auto) 1.4 10 ^3/uL (0.4-5.4); Lymphocytes % (auto) 32.6 % (10.0-50.0); Mean Corpuscular Hgb Conc. 33.6 g/dL (32.0-36.0); Mean Corpuscular Volume 86.3 fL (80.0-100.0); Monocytes # (auto) 0.3 10 ^3/uL (0-1.3); Monocytes % (auto) 7.3 % (0.0-12.0); Neutrophils # (auto) 2.4 10 ^3/uL (1.6-8.6); Neutrophils % (auto) 57.1 % (37.0-80.0); Nucleated Red Blood Cells % 0.1 %; Platelet Count (auto) 201 10^3/uL (140-450); Red Blood Cells 4.99 10^6/uL (4.0-5.20); Red Cell Distribution Width 13.2 % (11.8-14.3); White Blood Cell 4.1 10^3/uL (4.4-10.8)
[2024-08-04 09:09] LABS: Albumin 4.6 g/dL (3.2-4.8); Alkaline Phosphatase 86 U/L (46-116); Anion Gap 7 (5-15); Aspartate Aminotransferase 20 U/L (13-40); BUN/Creatinine Ratio 22.2 (10.0-20.0); Blood Urea Nitrogen 16 mg/dL (9-23); Calcium 9.6 mg/dL (8.7-10.4); Carbon Dioxide 27 mmol/L (20-31); Potassium 4.4 mmol/L (3.5-5.1); Sodium 142 mmol/L (136-145)
[2024-08-04 09:10] LABS: Bilirubin, Total 0.4 mg/dL (0.2-1.0); HDL Cholesterol 51 mg/dL (40-59)
[2024-08-04 09:15] LABS: Alanine Aminotransferase 61 U/L (7-40); Chloride 108 mmol/L (98-107); Cholesterol 259 mg/dL (< 200); Glucose 122 mg/dL (74-106); LDL Cholesterol 183 mg/dL (< 100); Triglycerides 303 mg/dL (< 150)
[2024-08-04 09:45] LABS: Urine Blood Negative /uL (Negative); Urine Clarity Clear (Clear); Urine Color Light-Yellow (Yellow); Urine Protein, UAD Negative (Negative); Urine Specific Gravity 1.012 (1.001-1.035); Urine Squamous Epithelial Cell FEW /hpf (<5); Urine Urobilinogen Normal (Negative); Urine WBC < 1 /HPF (0-5); Urine pH 5.5 (5.0-9.0)
[2024-08-04 10:35] LABS: Creatinine, Urine 53.59 mg/dL (30.0-125.0)
[2024-08-04 10:46] LABS: Micro Albumin < 3.0 mg/L (<30.0)
== END | disposition home or self-care (01) ==
LOC: LAB 07:38
PROVIDERS: ATTEND Internal Medicine
DX: Z00.01 Encounter for general adult medical examination with abnormal findings (principal); E11.69 Type 2 diabetes mellitus with other specified complication; I10 Essential (primary) hypertension; E78.2 Mixed hyperlipidemia; R94.4 Abnormal results of kidney function studies
CPT/HCPCS: 36415; 80053; 80061; 81001; 82043; 82570; 83036; 84439; 84443; 85025

== ENCOUNTER → 2024-11-07 | Outpatient (CLI) | payer OTHER ==
[2024-11-07 06:37] LABS: Basophils # (auto) 0 10 ^3/uL (0-0.2); Basophils % (auto) 0.5 % (0.0-2.0); Eosinophils # (auto) 0.2 10 ^3/uL (0-0.8); Eosinophils % (auto) 3.4 % (0.0-7.0); Hematocrit 41.9 % (36.0-46.0); Hemoglobin 13.8 g/dL (12.2-16.2); Lymphocytes # (auto) 1.6 10 ^3/uL (0.4-5.4); Lymphocytes % (auto) 33.1 % (10.0-50.0); Mean Corpuscular Hgb Conc. 32.9 g/dL (32.0-36.0); Monocytes # (auto) 0.4 10 ^3/uL (0-1.3); Monocytes % (auto) 7.8 % (0.0-12.0); Neutrophils # (auto) 2.7 10 ^3/uL (1.6-8.6); Neutrophils % (auto) 55.2 % (37.0-80.0); Nucleated Red Blood Cells % 0.1 %; Platelet Count (auto) 199 10^3/uL (140-450); Red Blood Cells 4.93 10^6/uL (4.0-5.20); Red Cell Distribution Width 12.9 % (11.8-14.3)
[2024-11-07 07:38] LABS: Cholesterol 184 mg/dL (< 200); HDL Cholesterol 53 mg/dL (40-59); LDL Cholesterol 102 mg/dL (< 100); Triglycerides 263 mg/dL (< 150)
== END | disposition home or self-care (01) ==
LOC: LAB 06:19
PROVIDERS: ATTEND Internal Medicine
DX: I12.9 Hypertensive chronic kidney disease with stage 1 through stage 4 chronic kidney disease, or unspecified chronic kidney disease (principal); E11.22 Type 2 diabetes mellitus with diabetic chronic kidney disease; E11.69 Type 2 diabetes mellitus with other specified complication; N18.9 Chronic kidney disease, unspecified; E78.2 Mixed hyperlipidemia; D72.819 Decreased white blood cell count, unspecified; R74.01 Elevation of levels of liver transaminase levels
CPT/HCPCS: 36415; 80061; 82274; 82306; 83036; 85025

== ENCOUNTER → 2024-11-24 | Outpatient (CLI) | payer OTHER ==
[2024-11-24 07:11] LABS: Basophils # (auto) 0 10 ^3/uL (0-0.2); Basophils % (auto) 0.3 % (0.0-2.0); Eosinophils # (auto) 0.1 10 ^3/uL (0-0.8); Hemoglobin 14.5 g/dL (12.2-16.2); Lymphocytes # (auto) 1.5 10 ^3/uL (0.4-5.4); Lymphocytes % (auto) 33.8 % (10.0-50.0); Mean Corpuscular Hemoglobin 28.8 pg (28.0-32.0); Mean Corpuscular Hgb Conc. 33.6 g/dL (32.0-36.0); Mean Corpuscular Volume 85.6 fL (80.0-100.0); Monocytes # (auto) 0.3 10 ^3/uL (0-1.3); Monocytes % (auto) 7.3 % (0.0-12.0); Neutrophils # (auto) 2.5 10 ^3/uL (1.6-8.6); Neutrophils % (auto) 55.6 % (37.0-80.0); Platelet Count (auto) 212 10^3/uL (140-450); Red Blood Cells 5.02 10^6/uL (4.0-5.20); Red Cell Distribution Width 13.6 % (11.8-14.3); White Blood Cell 4.4 10^3/uL (4.4-10.8)
[2024-11-24 09:09] LABS: Alkaline Phosphatase 87 U/L (46-116); Anion Gap 10 (5-15); BUN/Creatinine Ratio 17.3 (10.0-20.0); Blood Urea Nitrogen 13 mg/dL (9-23); Calcium 10.3 mg/dL (8.7-10.4); Carbon Dioxide 28 mmol/L (20-31); Chloride 106 mmol/L (98-107); Potassium 4.3 mmol/L (3.5-5.1); Sodium 144 mmol/L (136-145); Total Protein 7.2 g/dL (5.7-8.2)
[2024-11-24 09:10] LABS: Alanine Aminotransferase 61 U/L (7-40); Albumin 4.7 g/dL (3.2-4.8); Aspartate Aminotransferase 37 U/L (13-40); Bilirubin, Total 0.6 mg/dL (0.2-1.0); Glucose 126 mg/dL (74-106)
== END | disposition home or self-care (01) ==
LOC: LAB 06:47
PROVIDERS: ATTEND Internal Medicine
DX: C50.912 Malignant neoplasm of unspecified site of left female breast (principal); Z79.899 Other long term (current) drug therapy
CPT/HCPCS: 36415; 80053; 83615; 85025; 86300

== ENCOUNTER 2024-12-29 10:44 | Inpatient (IN) | payer OTHER ==
[~2024-12-29] VITALS: Ht 165.1 cm; Wt 61.8 kg
--- NOTE | 2024-12-29 11:02 | ED.PDOC ---
History of Present Illness HPI Comments 79 year old female with a History of HTN,DM, and High lipids presents to the ED for the c/c of Abnormal Rectal Bleeding. Pt states her bleeding started last night and notes of Dark, bright red stool. Pt also notes of associated Dizziness, N/ and Belching at this time. No other associated modifiers or factors at this time. Chief Complaint: GI Bleed Time Seen by MD: 10:58 Primary Care Provider: A RENY Reviewed Notes: Nurses Notes, Medications, Allergies Allergies: Coded Allergies: Amoxicillin (Verified Allergy, Unknown, 12/07/17) Clarithromycin (Verified Allergy, Unknown, 12/07/17) Home Meds Reported Medications Multiple Vitamin (Multivitamins) Tab, 1 TAB PO DAILY, #90 TAB 3 Refills 01/18/22 Glimepiride (Glimepiride) 2 Mg Tab, 2 MG PO BID, TAB 04/15/21 Lisinopril (Lisinopril) 2.5 Mg Tab, 2.5 MG PO DAILY, TAB 04/15/21 Atorvastatin Calcium (Lipitor) 40 Mg Tab, 1 TAB PO QPM, #90 TAB 1 Refill 12/07/17 Cholecalciferol (VITAMIN D3) 5,000 Unit Tab, 5000 UNIT PO DAILY, TAB 10/26/16 Aspirin (Aspirin Low Dose) 81 Mg Chw, 81 MG PO EVERY OTHER DAY, CHW 10/14/16 Information Source: Patient, Spouse Mode of Arrival: Ambulatory Severity: Moderate Timing: Hours Duration: Since onset, Hours Prehospital treatment: None Past Medical History PAST MEDICAL HISTORY: Cancer, DM, High Lipids, HTN Surgical History: Tonsillectomy 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 History Family History Family History: No family hx of HTN Social History Smoker: Non-Smoker Alcohol: Denies ETOH Use Drugs: Denies Drug Use Lives In: Home Constitutional: denies: chills, diaphoresis, fatigue, fever, malaise, sweats, weakness, others EENTM: denies: blurred vision, double vision, ear bleeding, ear discharge, ear drainage, ear pain, ear ringing, eye pain, eye redness, hearing loss, mouth pain, mouth swelling, nasal discharge, nose bleeding, nose congestion, nose pain, photophobia, tearing, throat pain, throat swelling, voice changes, others Respiratory: denies: cough, hemoptysis, orthopnea, SOB at rest, shortness of breath, SOB with excertion, stridor, wheezing, others Cardiovascular: denies: chest pain, dizzy spells, diaphoresis, Dyspnea on exertion, edema, irregular heart beat, left arm pain, lightheadedness, palpitations, PND, syncope, others Gastrointestinal: reports: rectal bleeding; denies: abdomen distended, abdominal pain, blood streaked bowels, constipated, diarrhea, dysphagia, difficulty swallowing, hematemesis, melena, nausea, poor appetite, poor fluid intake, rectal pain, vomiting, others Genitourinary: denies: abnormal vagina bleeding, burning, dyspareunia, dysuria, flank pain, frequency, hematuria, incontinence, pain, , vagina d ischarge, urgency, others Neurological: denies: dizziness, fainting, headache, left sided numbness, left sided weakness, numbness, paresthesia, pre-existing deficit, right sided numbness, right sided weakness, seizure, speech problems, tingling, tremors, weakness, others Musculoskeletal: denies: back pain, gout, joint pain, joint swelling, muscle pain, muscle stiffness, neck pain, others Integumetry: denies: bruises, change in color, change in hair/nails, dryness, laceration, lesions, lumps, rash, wounds, others Allergic/Immunocompromised: denies: Difficulty Healing, Frequent Infections, Hives, Itching, others Hematologic/Lymphatic: denies: anemia, blood clots, easy bleeding, easy bruising, swollen glands, others Endocrine: denies: excessive hunger, excessive sweating, excessive thirst, excessive urination, flushing, intolerance to cold, intolerance to heat, unexplained weight gain, unexplained weight loss, others Psychiatric: denies: anxiety, bipolar disorder, depression, hopeless, panic disorder, schizophrenia, sleepless, suicidal, others All Other Systems: Reviewed and Negative Physical Exam General Appearance: Moderate Distress HEENT: Normal ENT Inspection, Pharynx Normal, TMs Normal Neck: Full Range of Motion, Non-Tender, Normal, Normal Inspection Respiratory: Chest Non-Tender, Lungs Clear, No Accessory Muscle Use, No Respiratory Distress, Normal Breath Sounds Cardiovascular: No Edema, No JVD, No Murmur, No Gallop, Normal Peripheral Pulses, Regular Rate/Rhythm Breast Exam: Deferred Gastrointestinal: LLQ, No Organomegaly, No Pulsatile Mass, Normal Bowel Sounds, RLQ, Soft, Tenderness Genitalia: Deferred Pelvic: Deferred Rectal: Deferred Extremities: No calf tenderness, Normal capillary refill, Normal inspection, N ormal range of motion, Non-tender, No pedal edema Musculoskeletal : Apperance: Normal Neurologic: Alert, insole beveler II-XII nml as Tested, No Motor Deficits, Normal Affect, Normal Mood, No Sensory Deficits Cerebellar Function: Normal Reflexes: Normal Skin: Dry, Normal Color, Warm Lymphatic: No Adenopathy Was a procedure done? Was a procedure done?: No Differential Dx Considerations may include: Lower GI bleed, diverticulitis, UTI, generalized weakness X-Ray, Labs, Meds, VS Vital Signs Date Time Temp Pulse Resp B/P (MAP) Pulse Ox O2 Delivery O2 Flow Rate FiO2 12/29/24 11:50 Room Air* 0 21 12/29/24 11:04 98.4 81 16 153/72 (99) 98 98.4 Lab Test 12/29/24 11:19 Range/Units White Blood Count 5.9 4.4-10.8 10^3/uL Red Blood Count 5.20 4.0-5.20 10^6/uL Hemoglobin 14.8 12.2-16.2 g/dL Hematocrit 43.7 36.0-46.0 % Mean Corpuscular Volume 84.0 80.0-100.0 fL Mean Corpuscular Hemoglobin 28.4 28.0-32.0 pg Mean Corpuscular Hemoglobin Concent 33.8 32.0-36.0 g/dL Red Cell Distribution Width 13.3 11.8-14.3 % Platelet Count 208 140-450 10^3/uL Mean Platelet Volume 7.6 6.9-10.8 fL Neutrophils (%) (Auto) 57.9 37.0-80.0 % Lymphocytes (%) (Auto) 32.0 10.0-50.0 % Monocytes (%) (Auto) 7.8 0.0-12.0 % Eosinophils (%) (Auto) 1.9 0.0-7.0 % Basophils (%) (Auto) 0.4 0.0-2.0 % Neutrophils # (Auto) 3.4 1.6-8.6 10 ^3/uL Lymphocytes # (Auto) 1.9 0.4-5.4 10 ^3/uL Monocytes # (Auto) 0.5 0-1.3 10 ^3/uL Eosinophils # (Auto) 0.1 0-0.8 10 ^3/uL Basophils # (Auto) 0 0-0.2 10 ^3/uL Nucleated Red Blood Cells 0.1 % Prothrombin Time 10.5 9.3-11.8 sec Prothrombin Time INR 0.99 0.9-1.15 Activated Partial Thromboplast Time 24.5 24.5-34.5 SEC Sodium Level 143 136-145 mmol/L Potassium Level 4.0 3.5-5.1 mmol/L Chloride Level 108 H 98-107 mmol/L Carbon Dioxide Level 23 20-31 mmol/L Anion Gap 12 5-15 Blood Urea Nitrogen 14 9-23 mg/dL Creatinine 0.67 0.550-1.02 mg/dL Glomerular Filtration Rate Calc 90 >90 mL/min BUN/Creatinine Ratio 20.9 H 10.0-20.0 Serum Glucose 88 74-106 mg/dL Calcium Level 10.3 8.7-10.4 mg/dL Total Bilirubin 1.0 0.2-1.0 mg/dL Aspartate Amino Transferase (AST) 39 H <34 U/L Alanine Aminotransferase (ALT) 49 H 7-40 U/L Alkaline Phosphatase 93 46-116 U/L Total Protein 7.4 5.7-8.2 g/dL Albumin 4.7 3.2-4.8 g/dL IMPRESSION: Colonic diverticular disease. Hepatic steatosis Atherosclerotic disease. Partially calcified structure inferior to the 2nd segment of the duodenum measuring 1.8 cm, possibly duodenal diverticulum, calcified lymph node, less likely aggressive process but can not be ruled out. Other findings as described. The patient's CBC is within normal limits The chemistry panel is within normal limits IV Hep-Lock was established. The patient is being admitted with a diagnosis of lower GI bleed Images Reviewed?: Images reviewed and evaluated by me Time of 1ST Reevaluation: 11:29 Reevaluation 1ST: Unchanged Patient Education/Counseling: Diagnosis, Treatment, Prognosis Family Education/Counseling: Diagnosis, Treatment, Prognosis SEPSIS Sepsis Screen Physician Orders Ct Ab Pel Wo Con-No Oral Or Iv (12/29/24 10:59) Vital Signs Date Time Temp Pulse Resp B/P (MAP) Pulse Ox O2 Delivery O2 Flow Rate FiO2 12/29/24 11:50 Room Air* 0 21 12/29/24 11:04 98.4 81 16 153/72 (99) 98 98.4 Laboratory Tests Test 12/29/24 11:19 White Blood Count 5.9 10^3/uL (4.4-10.8) Departure 1 Departure Time of Disposition: 12:32 Impression: Primary Impression: Lower GI bleed Disposition: ADMITTED INPATIENT Admit to: Med Surg Condition: Fair Critical Care Note Critical Care Time?: No Stability Stability form required: Yes Unstable for transfer: ED Physician Assesment (Clinical assesment) Heart Score Heart Score: Heart Score Response (Comments) Value History N/A 0 EKG N/A 0 Age N/A 0 Risk Factors N/A 0 Troponin N/A 0 Total 0 I personally scribed for YVETTE CHERRY MD ([email or web address]) on 12/29/24 at 11:02. Elec tronically submitted by Jerardo Chacon ([email or web address]). I personally scribed for YVETTE CHERRY MD ([email or web address]) on 12/29/24 at 12:19. El ectronically submitted by Jerardo Chacon ([email or web address]). YVETTE CHERRY MD Dec 29, 2024 11:02
[2024-12-29 11:48] LABS: Basophils # (auto) 0 10 ^3/uL (0-0.2); Basophils % (auto) 0.4 % (0.0-2.0); Eosinophils # (auto) 0.1 10 ^3/uL (0-0.8); Eosinophils % (auto) 1.9 % (0.0-7.0); Hematocrit 43.7 % (36.0-46.0); Hemoglobin 14.8 g/dL (12.2-16.2); Lymphocytes # (auto) 1.9 10 ^3/uL (0.4-5.4); Mean Corpuscular Hemoglobin 28.4 pg (28.0-32.0); Mean Corpuscular Hgb Conc. 33.8 g/dL (32.0-36.0); Monocytes # (auto) 0.5 10 ^3/uL (0-1.3); Monocytes % (auto) 7.8 % (0.0-12.0); Neutrophils # (auto) 3.4 10 ^3/uL (1.6-8.6); Neutrophils % (auto) 57.9 % (37.0-80.0); Nucleated Red Blood Cells % 0.1 %; Platelet Count (auto) 208 10^3/uL (140-450); Red Cell Distribution Width 13.3 % (11.8-14.3); White Blood Cell 5.9 10^3/uL (4.4-10.8)
[2024-12-29 12:04] LABS: Albumin 4.7 g/dL (3.2-4.8); Alkaline Phosphatase 93 U/L (46-116); Anion Gap 12 (5-15); BUN/Creatinine Ratio 20.9 (10.0-20.0); Blood Urea Nitrogen 14 mg/dL (9-23); Calcium 10.3 mg/dL (8.7-10.4); Carbon Dioxide 23 mmol/L (20-31); Glucose 88 mg/dL (74-106); Sodium 143 mmol/L (136-145); Total Protein 7.4 g/dL (5.7-8.2)
[2024-12-29 12:05] LABS: Alanine Aminotransferase 49 U/L (7-40); Aspartate Aminotransferase 39 U/L (<34); Chloride 108 mmol/L (98-107); INR 0.99 (0.9-1.15); Partial Thromboplastin Time 24.5 SEC (24.5-34.5); Prothrombin Time 10.5 sec (9.3-11.8)
--- NOTE | 2024-12-29 12:11 | DVH ---
Indication: pain Technique: CT axial images of the abdomen and pelvis are obtained without contrast. Coronal and sagit alejandra reformats were obtained. Radiation Dose Information: CTDI volume is 6.2 mGy. Dose-length product is 319 mGy*cm Comparison: [facility] on DOS: 11/28/21 FINDINGS: There is limited interpretation of the abdomen and pelvis without administration of intravenous contr ast. Lung bases demonstrate atelectasis. Adrenal glands, spleen, pancreas unremarkable in shape. Hepatic steatosis. No CT evidence for cholel ithiasis. Kidneys demonstrate no hydronephrosis / nephrolithiasis. Small hiatal hernia. Small bowel loops normal in caliber. Partially calcified structure inferior to t he 2nd segment of the duodenum measuring 1.8 cm. Colonic diverticular disease. Normal appendix. Abdominal aortic atherosclerotic disease. Bladder partially distended. No free pelvic fluid. No ingu inal lymphadenopathy. [id number] bilateral sacroiliac degenerative joint disease. Moderate lumbar degenerative disc d isease most pronounced at L4-5. Moderate to advanced lumbar facet hypertrophic changes. IMPRESSION: Colonic diverticular disease. Hepatic steatosis Atherosclerotic disease. Partially calcified structure inferior to the 2nd segment of the duodenum measuring 1.8 cm, possibly duodenal diverticulum, calcified lymph node, less likely aggressive process but can not be ruled out. Other findings as described.
[2024-12-29] MEDS ORDERED: ACETAMINOPHEN 325 MG TAB PO PRN ×2 (15:45→16:15)
[2024-12-29] MEDS ORDERED: ONDANSETRON HCL 4 MG/2 ML VIAL IV PRN (15:45)
[2024-12-29] MEDS ORDERED: DOCUSATE SOD 100 MG CAP PO PRN (15:45)
[2024-12-29] MEDS ORDERED: hydrALAZINE HCL 20 MG/ML VL IV PRN (15:45)
[2024-12-29] MEDS ORDERED: HYDROcodone-ACET 5/325MG TAB PO PRN (15:45)
--- NOTE | 2024-12-29 16:35 | DVHHP2 ---
History of Present Illness Reason for Visit: Lower GI bleed History of Present Illness The patient is a 79-year-old female with past medical history of cancer, DM, hyperlipidemia, and hypertension who presented to [facility] ED with complaint of rectal bleeding. Patient reports bleeding started last night with tag bright red stool, associated with dizziness, belching, getting worse that prompted this visit. Patient was seen and evaluated in the ED, laboratory data shows WBC 5.9, hemoglobin 14.8, hematocrit 43.7, platelets 208, sodium 148, potassium 4.0, BUN 14, creatinine 0.67, glucose 88, calcium 10.3, AST 39, ALT 49, blood pressure 148/59, heart rate 66, temperature 98.1 F, O2 saturation 97% on room air. Please see medication orders section in the computer. On my assessment, patient denies chest pain, no headache, no dizziness, no shortness of breath, no diarrhea, no nausea, no vomiting, no fever, no chills. Patient was admitted for further evaluation and medical management. Past Medical History Cancer, DM, High Lipids, HTN Past Surgical History Tonsillectomy Family History Reviewed, noncontributory to the management of this case. Past Social History The patient lives at home, denies smoking, alcohol or illicit drugs abuse. Review of Systems Constitutional: Yes: Weakness; No: Fever, Chills, Sweats, Malaise, Other Eyes: No: Pain, Vision change, Conjunctivae inflammation, Eyelid inflammation, Other, Redness ENT: No: Ear pain, Ear discharge, Nose pain, Nose discharge, Nose congestion, Mouth pain, Mouth swelling, Throat pain, Throat swelling, Other Respiratory: No: Cough, Dry, Shortness of breath, SOB with excertion, Wheezing, Hemoptysis, Pleuritic Pain, Sputum, Wheezing, Other Cardiovascular: No: Chest Pain, Palpitations, Orthopnea, Paroxysmal Noc. Dyspnea, Edema, Lt Headedness, Other Gastrointestinal: Other (Rectal bleeding); No: Nausea, Vomiting, Abdominal Pain, Diarrhea, Constipation, Melena, Hematochezia Genitourinary: No Dysuria, No Frequency, No Incontinence, No Hematuria, No Retention, No Other Musculoskeletal: No: other, neck pain, shoulder pain, arm pain, back pain, hand pain, leg pain, foot pain Skin: No: Rash, Lesions, Jaundice, Bruising, Other Neurological: No: Weakness, Numbness, Incoordination, Change in speech, Confusion, Seizures, Other Allergies: Coded Allergies: Amoxicillin (Verified Allergy, Unknown, 12/07/17) Clarithromycin (Verified Allergy, Unknown, 12/07/17) Medications Current Medications Medications Dose Ordered Sig/Uday Route Start Time Stop Time Status Last Admin Dose Admin Aspirin 81 mg DAILY PO 12/30/24 10:00 Atorvastatin Calcium 20 mg HS PO 12/29/24 22:00 Famotidine 20 mg DAILY IV 12/30/24 10:00 Hydralazine HCl 10 mg Q6HP PRN IV 12/29/24 15:45 Sodium Chloride 10 ml Q8HR IV 12/29/24 22:00 Acetaminophen/ Hydrocodone Bitart 1 tab Q4HP PRN PO 12/29/24 15:45 Ondansetron HCl 4 mg Q4HP PRN IV 12/29/24 15:45 Docusate Sodium 100 mg BIDPRN PRN PO 12/29/24 15:45 Acetaminophen 500 mg Q6HP PRN PO 12/29/24 16:15 Exam Vital Signs Vital Signs Date Time Temp Pulse Resp B/P (MAP) Pulse Ox O2 Delivery O2 Flow Rate FiO2 12/29/24 14:50 66 18 148/59 (88) 96 12/29/24 12:42 Room Air 12/29/24 12:42 98.1 98.1 12/29/24 11:50 0 21 General Appearance: Alert, Oriented X3, Cooperative, No acute distress HEENT: Atraumatic, PERRLA, EOMI, Mucous membr. moist/pink Respiratory: Normal air movement Cardiovascular: Regular rate, Normal S1, Normal S2, No murmurs Abdominal: Normal bowel sounds, Soft, No hepatospenomegaly, No masses, Other (Reports tenderness) Extremities: No clubbing, No cyanosis, No edema, Normal pulses, No tenderness/swelling Skin: No rashes, No breakdown, No significant lesion Neuro: Normal speech, Normal tone, Sensation intact, Cranial nerves 3-12 NL, Reflexes 2+, Other (Generalized weakness) Psych/Mental Status: Mental status NL, Mood NL Labs/Xrays Labs Test 12/29/24 11:19 Range/Units White Blood Count 5.9 4.4-10.8 10^3/uL Red Blood Count 5.20 4.0-5.20 10^6/uL Hemoglobin 14.8 12.2-16.2 g/dL Hematocrit 43.7 36.0-46.0 % Mean Corpuscular Volume 84.0 80.0-100.0 fL Mean Corpuscular Hemoglobin 28.4 28.0-32.0 pg Mean Corpuscular Hemoglobin Concent 33.8 32.0-36.0 g/dL Red Cell Distribution Width 13.3 11.8-14.3 % Platelet Count 208 140-450 10^3/uL Mean Platelet Volume 7.6 6.9-10.8 fL Neutrophils (%) (Auto) 57.9 37.0-80.0 % Lymphocytes (%) (Auto) 32.0 10.0-50.0 % Monocytes (%) (Auto) 7.8 0.0-12.0 % Eosinophils (%) (Auto) 1.9 0.0-7.0 % Basophils (%) (Auto) 0.4 0.0-2.0 % Neutrophils # (Auto) 3.4 1.6-8.6 10 ^3/uL Lymphocytes # (Auto) 1.9 0.4-5.4 10 ^3/uL Monocytes # (Auto) 0.5 0-1.3 10 ^3/uL Eosinophils # (Auto) 0.1 0-0.8 10 ^3/uL Basophils # (Auto) 0 0-0.2 10 ^3/uL Nucleated Red Blood Cells 0.1 % Prothrombin Time 10.5 9.3-11.8 sec Prothrombin Time INR 0.99 0.9-1.15 Activated Partial Thromboplast Time 24.5 24.5-34.5 SEC Sodium Level 143 136-145 mmol/L Potassium Level 4.0 3.5-5.1 mmol/L Chloride Level 108 H 98-107 mmol/L Carbon Dioxide Level 23 20-31 mmol/L Anion Gap 12 5-15 Blood Urea Nitrogen 14 9-23 mg/dL Creatinine 0.67 0.550-1.02 mg/dL Glomerular Filtration Rate Calc 90 >90 mL/min BUN/Creatinine Ratio 20.9 H 10.0-20.0 Serum Glucose 88 74-106 mg/dL Calcium Level 10.3 8.7-10.4 mg/dL Total Bilirubin 1.0 0.2-1.0 mg/dL Aspartate Amino Transferase (AST) 39 H <34 U/L Alanine Aminotransferase (ALT) 49 H 7-40 U/L Alkaline Phosphatase 93 46-116 U/L Total Protein 7.4 5.7-8.2 g/dL Albumin 4.7 3.2-4.8 g/dL PATIENT: MEMO ARAIZA EACCT: [id number] UNIT: [id number] : 1945 LOC: ER ROOM / BED: / AGE / SEX: 79 / F ADM STATUS: REG ER SERVICE 1059 ORDERING PHYSICIAN: YVETTE CHERRY MD PROCEDURE(s): ABPL - CT AB PEL WO CON-NO ORAL OR IV REASON: pain ORDER NUMBER(s): [id number], ACCESSION NUMBER(s): [id number] Indication: pain Technique: CT axial images of the abdomen and pelvis are obtained without contrast. Coronal and sagittal reformats were obtained. Radiation Dose Information: CTDI volume is 6.2 mGy. Dose-length product is 319 mGy*cm Comparison: [facility] on DOS: 11/28/21 FINDINGS: There is limited interpretation of the abdomen and pelvis without administration of intravenous contrast. Lung bases demonstrate atelectasis. Adrenal glands, spleen, pancreas unremarkable in shape. Hepatic steatosis. No CT evidence for cholelithiasis. Kidneys demonstrate no hydronephrosis / nephrolithiasis. Small hiatal hernia. Small bowel loops normal in caliber. Partially calcified structure inferior to the 2nd segment of the duodenum measuring 1.8 cm. Colonic diverticular disease. Normal appendix. Abdominal aortic atherosclerotic disease. Bladder partially distended. No free pelvic fluid. No inguinal lymphadenopathy. [id number] bilateral sacroiliac degenerative joint disease. Moderate lumbar degenerative disc disease most pronounced at L4-5. Moderate to advanced lumbar facet hypertrophic changes. IMPRESSION: Colonic diverticular disease. Hepatic steatosis Atherosclerotic disease. Partially calcified structure inferior to the 2nd segment of the duodenum measuring 1.8 cm, possibly duodenal diverticulum, calcified lymph node, less likely aggressive process but can not be ruled out. Other findings as described. Assessment/Plan Assessment/Plan Lower GI bleed Elevated liver enzymes Generalized weakness Plan 1. Admit to med surge unit 2. Breathing treatment 3. Pain control management 4. Management of fluids and electrolytes 5. Consultation for hospitalist 6. Diagnostic tests abdomen/pelvis CT 7. DVT prophylaxis on SCDs 8. Repeat labs CBC, CMP in a.m. 9. Continue with current medical management 10. Treatment plan discussed with patient and RN. Patient verbalized understanding. Plan discussed with: Patient, Other (RN) My Orders Orders - CECILLE BURDICK DNP Procedure Category Date Status Time Aspirin Tablet PHA 12/30/24 In Process 10:00 Atorvastatin (Lipitor) PHA 12/29/24 In Process 22:00 Famotidine Injection PHA 12/30/24 In Process (Pepcid Injection) 10:00 Hydralazine Injection PHA 12/29/24 In Process (Apresoline Inject 15:45 Allergies MACEY 12/29/24 In Process 15:42 Code Status CODE 12/29/24 Transmitted 15:42 Sodium Chloride Lock PHA 12/29/24 In Process (Saline Lock Ns) 22:00 Oxygen Per Hour RT 12/29/24 Transmitted 15:42 Hydrocodone-Acet PHA 12/29/24 In Process 5/325mg Tab ([place] 15:45 Ondansetron Hcl PHA 12/29/24 In Process (Zofran) 15:45 Docusate Sodium PHA 12/29/24 In Process Capsule (Colace 15:45 Complete Blood Count LAB 12/30/24 Verified 04:00 Comprehensive LAB 12/30/24 Verified Metabolic Panel 04:00 Condition: Serious MACEY 12/29/24 In Process 15:42 Clear Liq Diet DIET 12/29/24 Transmitted Dinner Bedrest With Bathroom MACEY 12/29/24 In Process Privileg 15:42 Sequential MACEY 12/29/24 In Process Compression Device Acetaminophen Tablet PHA 12/29/24 In Process (Tylenol Tablet) 16:15 Admit ADMIT 12/29/24 Verified 16:34 Nitroglycerin PHA 12/29/24 Verified Sublingual (Ntrostat 16:45 Morphine Sulfate PHA 12/29/24 Verified Injection 16:45 Notify Md Of Changes MACEY 12/29/24 Verified From Base 16:34 Emergency Dysrhythmia MACEY 12/29/24 Verified Protocol 16:34 Oxygen By Nasal RT 12/29/24 Verified Cannula 16:34 Problem List: (1) Lower GI bleed (2) Elevated liver enzymes (3) Generalized weakness Date of Service: Dec 29, 2024 Billing Provider: OKPAN,CECILLE O DNP Common Visit Codes: [id number] INP/OBS CARE (HIGH) CECILLE BURDICK DNP Dec 29, 2024 16:35
[2024-12-29] MEDS ORDERED: MORPHINE SULFATE INJ 2 MG/ml SYRG IV PRN (16:45)
[2024-12-29] MEDS ORDERED: NITROGLYCERIN 0.4 MG SL TAB SL PRN (16:45)
[2024-12-29] MEDS: SODIUM CHLOR 0.9% PF (SALINE LOCK) 10ML VIAL/SYR IV SCH (22:00)
[2024-12-29 23:02] VITALS: BP 121/53; PULSE 75; RESP 16; TEMP 97.7; O2SAT 97
[2024-12-30] MEDS ORDERED: MAGN400T40 OR (00:32)
[2024-12-30] MEDS ORDERED: CINN500C7 PO (00:32)
[2024-12-30] MEDS ORDERED: OMEG1400 PO (00:32)
[2024-12-30] MEDS: ATORVASTATIN 20 MG TAB PO SCH (00:43)
[2024-12-30 01:00] VITALS: BP 126/56; PULSE 69; RESP 16; TEMP 97.9; O2SAT 96
[2024-12-30 05:00] VITALS: BP 130/74; PULSE 69; RESP 16; TEMP 98; O2SAT 95
[2024-12-30] MEDS: ACETAMINOPHEN 500 MG TAB or CAP PO PRN (05:30)
[2024-12-30 06:57] LABS: Basophils # (auto) 0 10 ^3/uL (0-0.2); Basophils % (auto) 0.4 % (0.0-2.0); Eosinophils # (auto) 0.1 10 ^3/uL (0-0.8); Eosinophils % (auto) 2.4 % (0.0-7.0); Hematocrit 41.1 % (36.0-46.0); Hemoglobin 13.9 g/dL (12.2-16.2); Lymphocytes # (auto) 1.7 10 ^3/uL (0.4-5.4); Lymphocytes % (auto) 30.1 % (10.0-50.0); Mean Corpuscular Hemoglobin 28.5 pg (28.0-32.0); Mean Corpuscular Volume 83.9 fL (80.0-100.0); Monocytes # (auto) 0.4 10 ^3/uL (0-1.3); Monocytes % (auto) 7.4 % (0.0-12.0); Neutrophils # (auto) 3.3 10 ^3/uL (1.6-8.6); Neutrophils % (auto) 59.7 % (37.0-80.0); Nucleated Red Blood Cells % 0.2 %; Platelet Count (auto) 209 10^3/uL (140-450); Red Blood Cells 4.89 10^6/uL (4.0-5.20); White Blood Cell 5.5 10^3/uL (4.4-10.8)
[2024-12-30 07:05] LABS: Albumin 4.3 g/dL (3.2-4.8); Alkaline Phosphatase 82 U/L (46-116); Anion Gap 11 (5-15); Blood Urea Nitrogen 15 mg/dL (9-23); Carbon Dioxide 24 mmol/L (20-31); Chloride 106 mmol/L (98-107); Glucose 99 mg/dL (74-106); Sodium 141 mmol/L (136-145); Total Protein 6.7 g/dL (5.7-8.2)
[2024-12-30 07:07] LABS: Alanine Aminotransferase 57 U/L (7-40); Aspartate Aminotransferase 44 U/L (<34)
[2024-12-30 09:00] VITALS: BP 130/76; PULSE 69; RESP 16; TEMP 97.6; O2SAT 98
[2024-12-30] MEDS: ASPirin 81 mg TAB PO SCH (09:49)
[2024-12-30] MEDS: FAMOTIDINE (10MG/ML) 2ML VL IV SCH (12:55)
--- NOTE | 2024-12-30 13:07 | DVHPN2 ---
Subjective Patient continues to report having abdominal bloating, rectal bleeding Reviewed: Care Plan, H&P, Labs, Medications Changes from previous H/P or p: No Changes General: Per HPI Eyes: No Pain, No Vision change, No Conjunctivae inflammation, No Eyelid inflammation, No Other, No Redness ENT: No Ear pain, No Ear discharge, No Nose pain, No Nose discharge, No Nose congestion, No Mouth pain, No Mouth swelling, No Throat pain, No Throat swelling, No Other Cardiovascular: No Chest Pain, No Palpitations, No Orthopnea, No Paroxysmal Noc. Dyspnea, No Edema, No Lt Headedness, No Other Respiratory: No Cough, No Dry, No Shortness of breath, No SOB with excertion, No Wheezing, No Hemoptysis, No Pleuritic Pain, No Sputum, No Other Gastrointestinal: No Nausea, No Vomiting, No Abdominal Pain, No Diarrhea, No Constipation, No Melena, No Hematochezia; Other (Rectal bleeding) Genitourinary: No Dysuria, No Frequency, No Incontinence, No Hematuria, No Retention, No Other Musculoskeletal: No other, No neck pain, No shoulder pain, No arm pain, No back pain, No hand pain, No leg pain, No foot pain Skin: No Rash, No Lesions, No Jaundice, No Bruising, No Other Objective Vitals Vital Signs Date Time Temp Pulse Resp B/P (MAP) Pulse Ox O2 Delivery O2 Flow Rate FiO2 12/30/24 09:00 97.6 69 16 130/76 (94) 98 97.6 12/30/24 08:00 Room Air* 0 21 Intake/Output Intake and Output 12/30/24 07:00 Intake Total 240 ml Balance 240 ml Intake Oral 240 ml # Voids 4 # Bowel Movements 1 General Appearance: Alert, Oriented X3, Cooperative, mild distress HEENT: Atraumatic, PERRLA Lungs: Clear to auscultation, Normal air movement Cardiovascular: Normal S1, Normal S2 Abdomen: Normal bowel sounds, Soft Musculoskeletal: Normal sensory function, Normal motor function Skin: Dry, Intact Psych/Mental Status: Mental status NL, Mood NL Medications Current Medications Medications Dose Ordered Sig/Uday Route Start Time Stop Time Status Last Admin Dose Admin Aspirin 81 mg DAILY PO 12/30/24 10:00 12/30/24 09:49 81 MG Atorvastatin Calcium 20 mg HS PO 12/29/24 22:00 12/30/24 00:43 20 MG Famotidine 20 mg DAILY IV 12/30/24 10:00 12/30/24 12:55 20 MG Hydralazine HCl 10 mg Q6HP PRN IV 12/29/24 15:45 Sodium Chloride 10 ml Q8HR IV 12/29/24 22:00 12/30/24 12:56 10 ML Acetaminophen/ Hydrocodone Bitart 1 tab Q4HP PRN PO 12/29/24 15:45 Ondansetron HCl 4 mg Q4HP PRN IV 12/29/24 15:45 Docusate Sodium 100 mg BIDPRN PRN PO 12/29/24 15:45 Nitroglycerin 0.4 mg Q5MINP PRN SL 12/29/24 16:45 Morphine Sulfate 2 mg Q30M PRN IV 12/29/24 16:45 Acetaminophen 500 mg Q6HP PRN PO 12/30/24 05:30 12/30/24 05:30 500 MG Sodium Chloride 1,000 ml @ 75 mls/hr [id number] IV 12/30/24 13:00 UNV Metronidazole 100 ml @ 100 mls/hr Q8HR IV 12/30/24 14:00 UNV Laboratory Results Laboratory Tests 12/30/24 06:14 Chemistry Test 12/30/24 06:14 Albumin 4.3 g/dL (3.2-4.8) Calcium Level 9.0 mg/dL (8.7-10.4) Total Protein 6.7 g/dL (5.7-8.2) LFT Test 12/30/24 06:14 Alanine Aminotransferase (ALT) 57 U/L (7-40) H Alkaline Phosphatase 82 U/L (46-116) Aspartate Amino Transferase (AST) 44 U/L (<34) H Total Bilirubin 1.0 mg/dL (0.2-1.0) Labs and/or images reviewed: Labs reviewed by me, Image(s) reviewed by me Assessment/Plan Assessment/Plan Impression: -rectal bleeding -diabetes mellitus -primary hypertension -hypothyroidism -dyslipidemia -history of breast cancer with mastectomy Plan: -stool for occult blood, check for bacteria -start IV hydration -start antibiotic therapy with Flagyl -thyroid supplementation -GI consultation -repeat labs in a.m. Total time spent with patient discussing and formulating plan of care: 35 minutes. This medical document was created using an electronic medical record system with [employer] computerized dictation system. Although this document has been carefully reviewed, there may still be some phonetic and typographical errors. These areas are purely typographical due to imperfections of the software programs, and do not reflect any compromise in the patient's medical care. Plan discussed with: Patient, Other (RN) My Orders Orders - BENITA GRECO NP Procedure Category Date Status Time Sodium Chloride 0.9% PHA 12/30/24 Logged 13:00 Metronidazole PHA 12/30/24 Logged 500mg/100ml (Flagyl 14:00 Basic Metabolic Panel LAB 12/31/24 Verified 04:00 Complete Blood Count LAB 12/31/24 Verified 04:00 Date of Service: Dec 30, 2024 Billing Provider: BENITA GRECO NP Common Visit Codes: [id number] INP/OBS CARE(HIGH) BENITA GRECO NP Dec 30, 2024 13:07
[2024-12-30 13:28] VITALS: BP 133/68; PULSE 72; RESP 16; TEMP 97.6; O2SAT 95
[2024-12-30] MEDS: metroNIDAZOLE 500MG/100ML 100 ML IV SCH (13:30)
[2024-12-30] MEDS: SODIUM CHLORIDE 0.9% 1,000 ML IV SCH (13:30)
[2024-12-30 16:51] VITALS: BP 125/76; PULSE 73; RESP 16; TEMP 97.5; O2SAT 95
[2024-12-30 21:00] VITALS: BP 121/70; PULSE 83; RESP 16; TEMP 97.4; O2SAT 97
[2024-12-31] VITALS (8 sets, daily range): BP systolic 116–149; BP diastolic 50–65; PULSE 63–78; RESP 16–20; TEMP 97.2–98.6; O2SAT 93–97
[2024-12-31 07:19] LABS: Potassium 4.1 mmol/L (3.5-5.1); Sodium 144 mmol/L (136-145)
[2024-12-31 07:20] LABS: Anion Gap 8 (5-15); Carbon Dioxide 25 mmol/L (20-31)
[2024-12-31 07:21] LABS: Calcium 8.1 mg/dL (8.7-10.4); Chloride 111 mmol/L (98-107)
[2024-12-31 07:25] LABS: Blood Urea Nitrogen 11 mg/dL (9-23); Glucose 105 mg/dL (74-106)
[2024-12-31 07:29] LABS: Basophils # (auto) 0 10 ^3/uL (0-0.2); Basophils % (auto) 0.5 % (0.0-2.0); Eosinophils # (auto) 0.1 10 ^3/uL (0-0.8); Eosinophils % (auto) 2.6 % (0.0-7.0); Hematocrit 35.8 % (36.0-46.0); Hemoglobin 12.1 g/dL (12.2-16.2); Lymphocytes # (auto) 1.3 10 ^3/uL (0.4-5.4); Lymphocytes % (auto) 32.3 % (10.0-50.0); Mean Corpuscular Hemoglobin 28.4 pg (28.0-32.0); Mean Corpuscular Hgb Conc. 33.8 g/dL (32.0-36.0); Monocytes # (auto) 0.3 10 ^3/uL (0-1.3); Monocytes % (auto) 8.3 % (0.0-12.0); Neutrophils # (auto) 2.3 10 ^3/uL (1.6-8.6); Neutrophils % (auto) 56.3 % (37.0-80.0); Platelet Count (auto) 188 10^3/uL (140-450); Red Blood Cells 4.27 10^6/uL (4.0-5.20); Red Cell Distribution Width 13.2 % (11.8-14.3); White Blood Cell 4.1 10^3/uL (4.4-10.8)
[2024-12-31] MEDS: PANTOPRAZOLE 40 MG/10 ML VIAL INJ IV SCH (09:57)
--- NOTE | 2024-12-31 13:34 | DVHINCON2 ---
GI Consult Consult Note GI consult note Date of Consultation: 12/31/2024 Chief Complaint: Rectal bleeding Referring Physician: Moy BERMUDEZ H&P: 79-year-old female presented to ER with complains of rectal bleeding Patient noticed red blood with bowel movement with black stool starting on Sunday, patient also complains of loose stool mostly on yesterday with a red blood. No abdominal pain. Patient has abdominal bloating. Has nausea denies vomiting. Patient diagnosed with C diff colitis in 2017, hospitalized for three weeks treated with multiple antibiotics and also needed a fecal transplant Status post EGD 04/2021 Dr. Gates diagnosed with gastritis Status post colonoscopy 2017 Dr. Simmons diagnosed with colitis. Subsequent colonoscopy in 2018, only showed diverticulosis Past Medical History: Cancer, DM, High Lipids, HTN Past Surgical History: Tonsillectomy Social History: NO smoking, drinking ETOH and use of illegal drugs. Family History: Noncontributory Review of Systems: Constitutional: no fever, chill, weight loss HEENT: no eye pain, no hearing loss, no oral lesion, no scleral icterus Heart: no chest pain, no chest pressure Lung: no cough, no dyspnea with exertion Abdomen: see HPI Physical exam: General: NAD, AAOX3 Chest: lung patrick clear to auscultation Heart: RRR, no murmur Abdomen: non-distended, no tenderness to palpation, +BS Labs: Labs Test 12/31/24 06:35 12/30/24 11:30 12/30/24 06:14 12/29/24 11:19 Range/Units White Blood Count 4.1 #L 4.4-10.8 10^3/uL Red Blood Count 4.27 4.0-5.20 10^6/uL Hemoglobin 12.1 L 12.2-16.2 g/dL Hematocrit 35.8 #L 36.0-46.0 % Mean Corpuscular Volume 84.0 80.0-100.0 fL Mean Corpuscular Hemoglobin 28.4 28.0-32.0 pg Mean Corpuscular Hemoglobin Concent 33.8 32.0-36.0 g/dL Red Cell Distribution Width 13.2 11.8-14.3 % Platelet Count 188 140-450 10^3/uL Mean Platelet Volume 7.5 6.9-10.8 fL Neutrophils (%) (Auto) 56.3 37.0-80.0 % Lymphocytes (%) (Auto) 32.3 10.0-50.0 % Monocytes (%) (Auto) 8.3 0.0-12.0 % Eosinophils (%) (Auto) 2.6 0.0-7.0 % Basophils (%) (Auto) 0.5 0.0-2.0 % Neutrophils # (Auto) 2.3 1.6-8.6 10 ^3/uL Lymphocytes # (Auto) 1.3 0.4-5.4 10 ^3/uL Monocytes # (Auto) 0.3 0-1.3 10 ^3/uL Eosinophils # (Auto) 0.1 0-0.8 10 ^3/uL Basophils # (Auto) 0 0-0.2 10 ^3/uL Nucleated Red Blood Cells 0.0 % Sodium Level 144 136-145 mmol/L Potassium Level 4.1 3.5-5.1 mmol/L Chloride Level 111 H 98-107 mmol/L Carbon Dioxide Level 25 20-31 mmol/L Anion Gap 8 5-15 Blood Urea Nitrogen 11 9-23 mg/dL Creatinine 0.61 0.550-1.02 mg/dL Glomerular Filtration Rate Calc 92 >90 mL/min BUN/Creatinine Ratio 18.0 10.0-20.0 Serum Glucose 105 74-106 mg/dL Calcium Level 8.1 L 8.7-10.4 mg/dL Stool Occult Blood Positive Negative Stool Occult Blood Sample #3 Negative Total Bilirubin 1.0 0.2-1.0 mg/dL Aspartate Amino Transferase (AST) 44 H <34 U/L Alanine Aminotransferase (ALT) 57 H 7-40 U/L Alkaline Phosphatase 82 46-116 U/L Total Protein 6.7 5.7-8.2 g/dL Albumin 4.3 3.2-4.8 g/dL Carcinoembryonic Antigen 1.59 <=5.0 ng/mL Prothrombin Time 10.5 9.3-11.8 sec Prothrombin Time INR 0.99 0.9-1.15 Activated Partial Thromboplast Time 24.5 24.5-34.5 SEC Imaging: CT abdomen pelvis IMPRESSION: Colonic diverticular disease. Hepatic steatosis Atherosclerotic disease. Partially calcified structure inferior to the 2nd segment of the duodenum measuring 1.8 cm, possibly duodenal diverticulum, calcified lymph node, less likely aggressive process but can not be ruled out. Other findings as described. Assessment: Hematochezia History of C diff colitis Colonic diverticular disease History of gastritis Hepatic steatosis Plan: -discussed with Dr. Gates Stool for C diff is pending Stool WBC and bacterial culture Continue antibiotic treatment Monitor labs Possible outpatient colonoscopy recommended at this time Discussed plan with patient and PCP Thank you for this consult Date of Service: Dec 31, 2024 Billing Provider: KATHY OCHOA Common Visit Codes: CONSULT ONLY Consultation Codes: [id number] CONSULT <60MIN KATHY OCHOA Dec 31, 2024 13:34
--- NOTE | 2024-12-31 16:17 | DVHPN2 ---
Subjective Patient continues to report having abdominal bloating, rectal bleeding Reviewed: Care Plan, H&P, Labs, Medications Changes from previous H/P or p: No Changes General: Per HPI Eyes: No Pain, No Vision change, No Conjunctivae inflammation, No Eyelid inflammation, No Other, No Redness ENT: No Ear pain, No Ear discharge, No Nose pain, No Nose discharge, No Nose congestion, No Mouth pain, No Mouth swelling, No Throat pain, No Throat swelling, No Other Cardiovascular: No Chest Pain, No Palpitations, No Orthopnea, No Paroxysmal Noc. Dyspnea, No Edema, No Lt Headedness, No Other Respiratory: No Cough, No Dry, No Shortness of breath, No SOB with excertion, No Wheezing, No Hemoptysis, No Pleuritic Pain, No Sputum, No Other Gastrointestinal: No Nausea, No Vomiting, No Abdominal Pain, No Diarrhea, No Constipation, No Melena, No Hematochezia; Other (Rectal bleeding) Genitourinary: No Dysuria, No Frequency, No Incontinence, No Hematuria, No Retention, No Other Musculoskeletal: No other, No neck pain, No shoulder pain, No arm pain, No back pain, No hand pain, No leg pain, No foot pain Skin: No Rash, No Lesions, No Jaundice, No Bruising, No Other Objective Vitals Vital Signs Date Time Temp Pulse Resp B/P (MAP) Pulse Ox O2 Delivery O2 Flow Rate FiO2 12/31/24 12:35 98.1 63 20 116/55 (75) 95 98.1 12/31/24 08:00 Room Air* 0 21 Intake/Output Intake and Output 12/31/24 07:00 Intake Total 1100 ml Balance 1100 ml Intake Oral 800 ml IV Total 300 ml # Voids 5 # Bowel Movements 4 General Appearance: Alert, Oriented X3, Cooperative, mild distress HEENT: Atraumatic, PERRLA Lungs: Clear to auscultation, Normal air movement Cardiovascular: Normal S1, Normal S2 Abdomen: Normal bowel sounds, Soft Musculoskeletal: Normal sensory function, Normal motor function Skin: Dry, Intact Psych/Mental Status: Mental status NL, Mood NL Medications Current Medications Medications Dose Ordered Sig/Uday Route Start Time Stop Time Status Last Admin Dose Admin Aspirin 81 mg DAILY PO 12/30/24 10:00 12/30/24 09:49 81 MG Atorvastatin Calcium 20 mg HS PO 12/29/24 22:00 12/30/24 21:26 20 MG Hydralazine HCl 10 mg Q6HP PRN IV 12/29/24 15:45 Sodium Chloride 10 ml Q8HR IV 12/29/24 22:00 12/31/24 14:47 10 ML Acetaminophen/ Hydrocodone Bitart 1 tab Q4HP PRN PO 12/29/24 15:45 Ondansetron HCl 4 mg Q4HP PRN IV 12/29/24 15:45 Docusate Sodium 100 mg BIDPRN PRN PO 12/29/24 15:45 Nitroglycerin 0.4 mg Q5MINP PRN SL 12/29/24 16:45 Morphine Sulfate 2 mg Q30M PRN IV 12/29/24 16:45 Acetaminophen 500 mg Q6HP PRN PO 12/30/24 05:30 12/30/24 05:30 500 MG Sodium Chloride 1,000 ml @ 75 mls/hr [id number] IV 12/30/24 13:00 12/31/24 03:20 75 MLS/HR Metronidazole 100 ml @ 100 mls/hr Q8HR IV 12/30/24 14:00 12/31/24 14:47 100 MLS/HR Pantoprazole Sodium 40 mg BID IV 12/31/24 10:00 12/31/24 09:57 40 MG Saccharomyces Boulardii 250 mg BID PO 12/31/24 22:00 Vancomycin HCl 250 mg QID PO 12/31/24 18:00 Laboratory Results Laboratory Tests 12/31/24 06:35 Chemistry Test 12/31/24 06:35 Calcium Level 8.1 mg/dL (8.7-10.4) L Microbiology Microbiology Date/Time Source Procedure Growth Status 12/30/24 11:30 Stool Clostridium difficile Toxin Assay - Final Complete Labs and/or images reviewed: Labs reviewed by me, Image(s) reviewed by me Assessment/Plan Assessment/Plan Impression: -rectal bleeding -diabetes mellitus -primary hypertension -hypothyroidism -dyslipidemia -history of breast cancer with mastectomy Plan: Events: Patient positive for C diff. -continue Flagyl, add p.o. vancomycin 250 mg p.o. 4 times a day, Florastor 250 mg p.o. twice a day. Patient had previous C diff infection -thyroid supplementation -advance diet -GI consultation : Recommendations reviewed -repeat labs in a.m. Total time spent with patient discussing and formulating plan of care: 35 minutes. This medical document was created using an electronic medical record system with [employer] dictation system. Although this document has been carefully reviewed, there may still be some phonetic and typographical errors. These areas are purely typographical due to imperfections of the software programs, and do not reflect any compromise in the patient's medical care. Plan discussed with: Patient, Other (RN) My Orders Orders - BENITA GRECO NP Procedure Category Date Status Time * Gi [facility] Medical Secretary Teacher CONS 12/31/24 Transmitted 08:46 Pantoprazole PHA 12/31/24 In Process (Protonix) 10:00 Florastor (S. PHA 12/31/24 In Process Boulardii) (Florastor) 22:00 Vancomycin Po PHA 12/31/24 In Process (Vancomycin 18:00 Regular Diet DIET 12/31/24 Transmitted Dinner Basic Metabolic Panel LAB 01/01/25 Verified 04:00 Complete Blood Count LAB 01/01/25 Verified 04:00 Date of Service: Dec 31, 2024 Billing Provider: BENITA GRECO NP Common Visit Codes: [id number] INP/OBS CARE(HIGH) BENITA GRECO NP Dec 31, 2024 16:17
[2024-12-31] MEDS: VANCOMYCIN HCL 250 MG CAP PO SCH (18:05)
[2024-12-31] MEDS: FLORASTOR (S. BOULARDII) 250 MG CAP PO SCH (21:52)
[2025-01-01 01:00] VITALS: BP 136/52; PULSE 70; RESP 18; TEMP 98.4; O2SAT 100
[2025-01-01 05:00] VITALS: BP 140/56; PULSE 72; RESP 18; TEMP 98.1; O2SAT 99
[2025-01-01 06:49] LABS: Potassium 3.8 mmol/L (3.5-5.1)
[2025-01-01 06:50] LABS: Anion Gap 10 (5-15); Calcium 8.8 mg/dL (8.7-10.4); Carbon Dioxide 23 mmol/L (20-31)
[2025-01-01 06:52] LABS: Chloride 112 mmol/L (98-107); Sodium 145 mmol/L (136-145)
[2025-01-01 06:55] LABS: BUN/Creatinine Ratio 14.9 (10.0-20.0); Blood Urea Nitrogen 10 mg/dL (9-23); Glucose 119 mg/dL (74-106)
[2025-01-01 06:57] LABS: Basophils # (auto) 0 10 ^3/uL (0-0.2); Basophils % (auto) 0.6 % (0.0-2.0); Eosinophils # (auto) 0.1 10 ^3/uL (0-0.8); Eosinophils % (auto) 2.8 % (0.0-7.0); Hematocrit 33.8 % (36.0-46.0); Hemoglobin 11.3 g/dL (12.2-16.2); Mean Corpuscular Hemoglobin 28.2 pg (28.0-32.0); Mean Corpuscular Hgb Conc. 33.5 g/dL (32.0-36.0); Mean Corpuscular Volume 84.1 fL (80.0-100.0); Monocytes # (auto) 0.3 10 ^3/uL (0-1.3); Monocytes % (auto) 8.9 % (0.0-12.0); Neutrophils # (auto) 1.8 10 ^3/uL (1.6-8.6); Neutrophils % (auto) 55.7 % (37.0-80.0); Nucleated Red Blood Cells % 0.1 %; Platelet Count (auto) 174 10^3/uL (140-450); Red Blood Cells 4.02 10^6/uL (4.0-5.20); Red Cell Distribution Width 13.1 % (11.8-14.3); White Blood Cell 3.2 10^3/uL (4.4-10.8)
[2025-01-01 09:00] VITALS: BP 134/80; PULSE 67; RESP 16; TEMP 97.5; O2SAT 96
--- NOTE | 2025-01-01 11:18 | DVHPN2 ---
Subjective Patient continues to report having abdominal bloating, rectal bleeding Reviewed: Care Plan, H&P, Labs, Medications Changes from previous H/P or p: No Changes General: Per HPI Eyes: No Pain, No Vision change, No Conjunctivae inflammation, No Eyelid inflammation, No Other, No Redness ENT: No Ear pain, No Ear discharge, No Nose pain, No Nose discharge, No Nose congestion, No Mouth pain, No Mouth swelling, No Throat pain, No Throat swelling, No Other Cardiovascular: No Chest Pain, No Palpitations, No Orthopnea, No Paroxysmal Noc. Dyspnea, No Edema, No Lt Headedness, No Other Respiratory: No Cough, No Dry, No Shortness of breath, No SOB with excertion, No Wheezing, No Hemoptysis, No Pleuritic Pain, No Sputum, No Other Gastrointestinal: No Nausea, No Vomiting, No Abdominal Pain, No Diarrhea, No Constipation, No Melena, No Hematochezia; Other (Rectal bleeding) Genitourinary: No Dysuria, No Frequency, No Incontinence, No Hematuria, No Retention, No Other Musculoskeletal: No other, No neck pain, No shoulder pain, No arm pain, No back pain, No hand pain, No leg pain, No foot pain Skin: No Rash, No Lesions, No Jaundice, No Bruising, No Other Objective Vitals Vital Signs Date Time Temp Pulse Resp B/P (MAP) Pulse Ox O2 Delivery O2 Flow Rate FiO2 01/01/25 09:00 97.5 67 16 134/80 (98) 96 97.5 01/01/25 08:15 Room Air* 0 21 Intake/Output Intake and Output 01/01/25 07:00 Intake Total 3200 ml Balance 3200 ml Intake Oral 900 ml IV Total 2300 ml # Voids 8 # Bowel Movements 1 General Appearance: Alert, Oriented X3, Cooperative, mild distress HEENT: Atraumatic, PERRLA Lungs: Clear to auscultation, Normal air movement Cardiovascular: Normal S1, Normal S2 Abdomen: Normal bowel sounds, Soft Musculoskeletal: Normal sensory function, Normal motor function Skin: Dry, Intact Psych/Mental Status: Mental status NL, Mood NL Medications Current Medications Medications Dose Ordered Sig/Uday Route Start Time Stop Time Status Last Admin Dose Admin Aspirin 81 mg DAILY PO 12/30/24 10:00 01/01/25 10:20 81 MG Atorvastatin Calcium 20 mg HS PO 12/29/24 22:00 12/31/24 21:50 20 MG Hydralazine HCl 10 mg Q6HP PRN IV 12/29/24 15:45 Sodium Chloride 10 ml Q8HR IV 12/29/24 22:00 01/01/25 05:29 10 ML Acetaminophen/ Hydrocodone Bitart 1 tab Q4HP PRN PO 12/29/24 15:45 Ondansetron HCl 4 mg Q4HP PRN IV 12/29/24 15:45 Docusate Sodium 100 mg BIDPRN PRN PO 12/29/24 15:45 Nitroglycerin 0.4 mg Q5MINP PRN SL 12/29/24 16:45 Morphine Sulfate 2 mg Q30M PRN IV 12/29/24 16:45 Acetaminophen 500 mg Q6HP PRN PO 12/30/24 05:30 12/30/24 05:30 500 MG Sodium Chloride 1,000 ml @ 75 mls/hr [id number] IV 12/30/24 13:00 01/01/25 06:30 75 MLS/HR Metronidazole 100 ml @ 100 mls/hr Q8HR IV 12/30/24 14:00 01/01/25 05:23 100 MLS/HR Pantoprazole Sodium 40 mg BID IV 12/31/24 10:00 01/01/25 10:21 40 MG Saccharomyces Boulardii 250 mg BID PO 12/31/24 22:00 01/01/25 10:20 250 MG Vancomycin HCl 250 mg QID PO 12/31/24 18:00 01/01/25 11:16 250 MG Laboratory Results Laboratory Tests 01/01/25 06:14 Chemistry Test 01/01/25 06:14 Calcium Level 8.8 mg/dL (8.7-10.4) Microbiology Microbiology Date/Time Source Procedure Growth Status 12/30/24 11:30 Stool Clostridium difficile Toxin Assay - Final Complete Labs and/or images reviewed: Labs reviewed by me, Image(s) reviewed by me Assessment/Plan Assessment/Plan Impression: -rectal bleeding -diabetes mellitus -primary hypertension -hypothyroidism -dyslipidemia -history of breast cancer with mastectomy Plan: Events: Patient continues to have some rectal bleeding, decreased in frequency. Now reports having abdominal bloating. Continue current plan of care and reassess for discharge -continue Flagyl, add p.o. vancomycin 250 mg p.o. 4 times a day, Florastor 250 mg p.o. twice a day. Patient had previous C diff infection -thyroid supplementation -advance diet -GI consultation : Recommendations reviewed Total time spent with patient discussing and formulating plan of care: 35 minutes. This medical document was created using an electronic medical record system with [employer] dictation system. Although this document has been carefully reviewed, there may still be some phonetic and typographical errors. These areas are purely typographical due to imperfections of the software programs, and do not reflect any compromise in the patient's medical care. Plan discussed with: Patient, Other (RN) My Orders Orders - BENITA GRECO NP Procedure Category Date Status Time Florastor (S. PHA 12/31/24 In Process Boulardii) (Florastor) 22:00 Vancomycin Po PHA 12/31/24 In Process (Vancomycin 18:00 Regular Diet DIET 12/31/24 Transmitted Dinner Date of Service: Jan 01, 2025 Billing Provider: BENITA GRECO NP Common Visit Codes: [id number] INP/OBS CARE(HIGH) BENITA GRECO NP Jan 01, 2025 11:18
[2025-01-01 13:00] VITALS: BP 131/74; PULSE 67; RESP 17; TEMP 97.8; O2SAT 98
--- NOTE | 2025-01-01 16:30 | DVHPN2 ---
Progress Note Date Seen: Jan 01, 2025 Resident Creating Document: MARIA ISABEL SUAREZ RESIDENT Medical Necessity Reason Pt with a Central, PICC or Fol: No Subjective Review of Systems Patient was seen today at bedside No fever Patient has ongoing loose motion with blood On oral vancomycin and metronidazole Mild transaminitis Objective vital signs Vital Sign Date Time Temp Pulse Resp B/P (MAP) Pulse Ox O2 Delivery O2 Flow Rate FiO2 01/01/25 13:00 97.8 67 17 131/74 (93) 98 97.8 01/01/25 08:15 Room Air* 0 21 Total Intake and Output 12/31/24 12/31/24 01/01/25 14:59 22:59 06:59 Intake Total 1600 ml 1600 ml Balance 1600 ml 1600 ml medications Current Medications Medications Dose Ordered Sig/Uday Route Start Time Stop Time Status Last Admin Dose Admin Aspirin 81 mg DAILY PO 12/30/24 10:00 01/01/25 10:20 81 MG Atorvastatin Calcium 20 mg HS PO 12/29/24 22:00 12/31/24 21:50 20 MG Hydralazine HCl 10 mg Q6HP PRN IV 12/29/24 15:45 Sodium Chloride 10 ml Q8HR IV 12/29/24 22:00 01/01/25 13:58 10 ML Acetaminophen/ Hydrocodone Bitart 1 tab Q4HP PRN PO 12/29/24 15:45 Ondansetron HCl 4 mg Q4HP PRN IV 12/29/24 15:45 Docusate Sodium 100 mg BIDPRN PRN PO 12/29/24 15:45 Nitroglycerin 0.4 mg Q5MINP PRN SL 12/29/24 16:45 Morphine Sulfate 2 mg Q30M PRN IV 12/29/24 16:45 Acetaminophen 500 mg Q6HP PRN PO 12/30/24 05:30 12/30/24 05:30 500 MG Sodium Chloride 1,000 ml @ 75 mls/hr [id number] IV 12/30/24 13:00 01/01/25 06:30 75 MLS/HR Metronidazole 100 ml @ 100 mls/hr Q8HR IV 12/30/24 14:00 01/01/25 13:59 100 MLS/HR Pantoprazole Sodium 40 mg BID IV 12/31/24 10:00 01/01/25 10:21 40 MG Saccharomyces Boulardii 250 mg BID PO 12/31/24 22:00 01/01/25 10:20 250 MG Vancomycin HCl 250 mg QID PO 12/31/24 18:00 01/01/25 11:16 250 MG laboratory and microbiology Laboratory Tests 01/01/25 06:14 Test 01/01/25 06:14 Range/Units Serum Glucose 119 H 74-106 mg/dL Microbiology Date/Time Source Procedure Growth Status 12/30/24 11:30 Stool Clostridium difficile Toxin Assay - Final Complete Problem List/Assessment/Plan Problem List/Assessment/Plan Assessment and plan Per rectal bleeding C diff colitis Hypertension Hypothyroidism Diverticulosis Events No fever Patient has ongoing loose motion with blood On oral vancomycin and metronidazole Mild transaminitis Plan Maintain well hydration Continue vancomycin and metronidazole as prescribed Monitor bowel habit Monitor CBC and BMP Plan is to do outpatient colonoscopy after discharge once infection well controlled Plan discussed with Dr. Priscilla Gates , nursing staff, Total time spent on patient evaluation, chart review, assessment and plan, discussion discussion >35 minutes Plan discussed with: Patient, Other (RN) MARIA ISABEL SUAREZ RESIDENT Jan 01, 2025 16:30
[2025-01-01 17:00] VITALS: BP 142/66; PULSE 77; RESP 16; TEMP 97.5; O2SAT 97
[2025-01-01 21:00] VITALS: BP 133/66; PULSE 68; RESP 20; TEMP 96.7; O2SAT 98
[2025-01-02 00:42] VITALS: BP 109/62; PULSE 64; RESP 19; TEMP 96.3; O2SAT 98
[2025-01-02 04:32] VITALS: BP 110/64; PULSE 59; RESP 19; TEMP 85.4; O2SAT 97
[2025-01-02 08:00] VITALS: PULSE 62; RESP 16; O2SAT 97
[2025-01-02 08:33] VITALS: BP 137/56; PULSE 62; RESP 16; TEMP 97.7; O2SAT 97
[2025-01-02] MEDS ORDERED: METR-344 PO (11:23)
[2025-01-02] MEDS ORDERED: SACC250C PO (11:23)
[2025-01-02] MEDS ORDERED: VANC250C4 PO (11:23)
--- NOTE | 2025-01-02 11:26 | DVHDS2 ---
Discharge Summary Date of Admission Dec 29, 2024 at 16:34 Date of Discharge: Jan 02, 2025 Admitting Diagnosis C-Diff Colitis Labs/Diagnostic Data: Laboratory Results Test 01/01/25 06:14 12/30/24 11:30 12/30/24 06:14 12/29/24 11:19 White Blood Count 3.2 10^3/uL (4.4-10.8) Red Blood Count 4.02 10^6/uL (4.0-5.20) Hemoglobin 11.3 g/dL (12.2-16.2) Hematocrit 33.8 % (36.0-46.0) Mean Corpuscular Volume 84.1 fL (80.0-100.0) Mean Corpuscular Hemoglobin 28.2 pg (28.0-32.0) Mean Corpuscular Hemoglobin Concent 33.5 g/dL (32.0-36.0) Red Cell Distribution Width 13.1 % (11.8-14.3) Platelet Count 174 10^3/uL (140-450) Mean Platelet Volume 7.3 fL (6.9-10.8) Neutrophils (%) (Auto) 55.7 % (37.0-80.0) Lymphocytes (%) (Auto) 32.0 % (10.0-50.0) Monocytes (%) (Auto) 8.9 % (0.0-12.0) Eosinophils (%) (Auto) 2.8 % (0.0-7.0) Basophils (%) (Auto) 0.6 % (0.0-2.0) Neutrophils # (Auto) 1.8 10 ^3/uL (1.6-8.6) Lymphocytes # (Auto) 1.0 10 ^3/uL (0.4-5.4) Monocytes # (Auto) 0.3 10 ^3/uL (0-1.3) Eosinophils # (Auto) 0.1 10 ^3/uL (0-0.8) Basophils # (Auto) 0 10 ^3/uL (0-0.2) Nucleated Red Blood Cells 0.1 % Sodium Level 145 mmol/L (136-145) Potassium Level 3.8 mmol/L (3.5-5.1) Chloride Level 112 mmol/L (98-107) Carbon Dioxide Level 23 mmol/L (20-31) Anion Gap 10 (5-15) Blood Urea Nitrogen 10 mg/dL (9-23) Creatinine 0.67 mg/dL (0.550-1.02) Glomerular Filtration Rate Calc 90 mL/min (>90) BUN/Creatinine Ratio 14.9 (10.0-20.0) Serum Glucose 119 mg/dL (74-106) Calcium Level 8.8 mg/dL (8.7-10.4) Stool Occult Blood Positive (Negative) Stool Occult Blood Sample #3 (Negative) Total Bilirubin 1.0 mg/dL (0.2-1.0) Aspartate Amino Transferase (AST) 44 U/L (<34) Alanine Aminotransferase (ALT) 57 U/L (7-40) Alkaline Phosphatase 82 U/L (46-116) Total Protein 6.7 g/dL (5.7-8.2) Albumin 4.3 g/dL (3.2-4.8) Carcinoembryonic Antigen 1.59 ng/mL (<=5.0) Prothrombin Time 10.5 sec (9.3-11.8) Prothrombin Time INR 0.99 (0.9-1.15) Activated Partial Thromboplast Time 24.5 SEC (24.5-34.5) Other Laboratory Tests 01/01/25 06:14 Brief Hx & Hospital Course: The patient is a 79-year-old female with past medical history of cancer, DM, hyperlipidemia, and hypertension who presented to [facility] ED with complaint of rectal bleeding. Patient reports bleeding started last night with tag bright red stool, associated with dizziness, belching, getting worse that prompted this visit. Patient was positive for C diff. Treated with vanco p.o. and Flagyl. Patient reports her stool is formed now bleeding has decreased, patient would like to be discharged home. Patient had an CT Abd/Pelvis done which showed a duodenal diverticulum, patient needs to be seen by GI for outpatient EGD to rule out malignancy process. Operations or Procedures Indication: pain Technique: CT axial images of the abdomen and pelvis are obtained without contrast. Coronal and sagittal reformats were obtained. Radiation Dose Information: CTDI volume is 6.2 mGy. Dose-length product is 319 mGy*cm Comparison: [facility] on DOS: 11/28/21 FINDINGS: There is limited interpretation of the abdomen and pelvis without administration of intravenous contrast. Lung bases demonstrate atelectasis. Adrenal glands, spleen, pancreas unremarkable in shape. Hepatic steatosis. No CT evidence for cholelithiasis. Kidneys demonstrate no hydronephrosis / nephrolithiasis. Small hiatal hernia. Small bowel loops normal in caliber. Partially calcified structure inferior to the 2nd segment of the duodenum measuring 1.8 cm. Colonic diverticular disease. Normal appendix. Abdominal aortic atherosclerotic disease. Bladder partially distended. No free pelvic fluid. No inguinal lymphadenopathy. [id number] bilateral sacroiliac degenerative joint disease. Moderate lumbar degenerative disc disease most pronounced at L4-5. Moderate to advanced lumbar facet hypertrophic changes. IMPRESSION: Colonic diverticular disease. Hepatic steatosis Atherosclerotic disease. Partially calcified structure inferior to the 2nd segment of the duodenum measuring 1.8 cm, possibly duodenal diverticulum, calcified lymph node, less likely aggressive process but can not be ruled out. Other findings as described. Condition at Discharge: Poor Final Diagnosis/Problems List # C-Diff Colitis- Cont Vanco and Flagyl PO # Partially calcified structure inferior to the 2nd segment of the duodenum measuring 1.8 cm, possibly duodenal diverticulum- Needs EGD as outpatient Discharge Disposition: Home Discharge Instruct/Medications Diet: See Comment Diet comment: As tolerated Activity: Light activity Follow Up/Referral: Dr. Lomeli on Sunday [facility] GI in 4 weeks for EGD Medications: See [facility] Discharge Statement: "Patient was advised to return to the ER or call 911 if any headaches, dizziness, shortness of breath, chest pain, abdominal pain, bleeding, fevers, or worsening of medical condition. Patient was counseled about treatment plan, medications, possible side effects, patientverbalized understanding. All questions were answered to the best of my ability. This discharge took greater then 30 minutes in planning, reviewing documentation, counseling the patient, and discussing with other team members." ASSESSMENT ASSESSMENT Assessment Date of Service: Jan 02, 2025 Billing Provider: MICKI JAMES MD Common Visit Codes: [id number] DISCH DAY >30min MICKI JAMES MD Jan 02, 2025 11:26
[2025-01-02 13:00] VITALS: BP 140/53; PULSE 66; RESP 16; TEMP 97.8; O2SAT 97
--- NOTE | 2025-01-02 14:41 | DVHPN2 ---
Progress Note Date Seen: Jan 02, 2025 Resident Creating Document: MARIA ISABEL SUAREZ RESIDENT Medical Necessity Reason Pt with a Central, PICC or Fol: No Subjective Review of Systems Patient was seen today at bedside Patient reported diarrhea has improved Feeling much better today H&H stable On oral vancomycin Objective vital signs Vital Sign Date Time Temp Pulse Resp B/P (MAP) Pulse Ox O2 Delivery O2 Flow Rate FiO2 01/02/25 13:00 97.8 66 16 140/53 (82) 97 97.8 01/02/25 08:00 Room Air* 0 21 Total Intake and Output 01/01/25 01/01/25 01/02/25 15:00 23:00 07:00 Intake Total 100 ml 1550 ml 1400 ml Balance 100 ml 1550 ml 1400 ml medications Current Medications Medications Dose Ordered Sig/Uday Route Start Time Stop Time Status Last Admin Dose Admin Aspirin 81 mg DAILY PO 12/30/24 10:00 01/02/25 08:41 81 MG Atorvastatin Calcium 20 mg HS PO 12/29/24 22:00 01/01/25 22:10 20 MG Hydralazine HCl 10 mg Q6HP PRN IV 12/29/24 15:45 Sodium Chloride 10 ml Q8HR IV 12/29/24 22:00 01/02/25 05:16 10 ML Acetaminophen/ Hydrocodone Bitart 1 tab Q4HP PRN PO 12/29/24 15:45 Ondansetron HCl 4 mg Q4HP PRN IV 12/29/24 15:45 Docusate Sodium 100 mg BIDPRN PRN PO 12/29/24 15:45 Nitroglycerin 0.4 mg Q5MINP PRN SL 12/29/24 16:45 Morphine Sulfate 2 mg Q30M PRN IV 12/29/24 16:45 Acetaminophen 500 mg Q6HP PRN PO 12/30/24 05:30 01/02/25 00:04 500 MG Sodium Chloride 1,000 ml @ 75 mls/hr [id number] IV 12/30/24 13:00 01/01/25 19:01 75 MLS/HR Metronidazole 100 ml @ 100 mls/hr Q8HR IV 12/30/24 14:00 01/02/25 05:12 100 MLS/HR Pantoprazole Sodium 40 mg BID IV 12/31/24 10:00 01/02/25 08:40 40 MG Saccharomyces Boulardii 250 mg BID PO 12/31/24 22:00 01/02/25 08:41 250 MG Vancomycin HCl 250 mg QID PO 12/31/24 18:00 01/02/25 05:14 250 MG laboratory and microbiology Laboratory Tests 01/01/25 06:14 Test 01/01/25 06:14 Range/Units Serum Glucose 119 H 74-106 mg/dL Microbiology Date/Time Source Procedure Growth Status 12/30/24 11:30 Stool Clostridium difficile Toxin Assay - Final Complete Problem List/Assessment/Plan Problem List/Assessment/Plan Assessment and plan Per rectal bleeding C diff colitis Hypertension Hypothyroidism Diverticulosis Events Patient reported diarrhea has improved Feeling much better today H&H stable On oral vancomycin Plan Patient's symptoms improved so patient can be discharged home with oral vancomycin Plan is to do outpatient colonoscopy after discharge once infection well controlled Plan discussed with Dr. Priscilla Gates , nursing staff, Total time spent on patient evaluation, chart review, assessment and plan, discussion discussion >35 minutes Plan discussed with: Patient, Other (RN) MARIA ISABEL SUAREZ RESIDENT Jan 02, 2025 14:41
[2025-01-02 15:20] VITALS: BP 137/56; PULSE 62; RESP 16; TEMP 97.7; O2SAT 97
== END 2025-01-02 15:54 | disposition home or self-care (01) | DRG 373 ==
LOC: ER 10:44 → OVERFLOW 16:34 → EAST 23:02
PROVIDERS: ADMIT Internal Medicine; ATTEND Internal Medicine
DX: A04.72 Enterocolitis due to Clostridium difficile, not specified as recurrent (principal); K57.10 Diverticulosis of small intestine without perforation or abscess without bleeding; K76.0 Fatty (change of) liver, not elsewhere classified; E03.9 Hypothyroidism, unspecified; E11.9 Type 2 diabetes mellitus without complications; E78.5 Hyperlipidemia, unspecified; I10 Essential (primary) hypertension; Z85.3 Personal history of malignant neoplasm of breast; Z86.19 Personal history of other infectious and parasitic diseases; Z88.0 Allergy status to penicillin; Z90.10 Acquired absence of unspecified breast and nipple; Z88.1 Allergy status to other antibiotic agents; Z79.82 Long term (current) use of aspirin; Z79.899 Other long term (current) drug therapy
CPT/HCPCS: 36415; 74176; 80048; 80053; 82270; 82378; 85025; 85610; 85730; 87493; G0378; J2470; J3490

== ENCOUNTER 2025-02-11 07:01 | Outpatient (CLI) | payer OTHER ==
[~2025-02-11 07:01] MED LIST changes: +CINN500C7 PO; +MAGN400T40 OR; +METR-344 PO; +OMEG1400 PO; +SACC250C PO; +VANC250C4 PO
[2025-02-11 08:53] LABS: Alanine Aminotransferase 27 U/L (7-40); Albumin 4.6 g/dL (3.2-4.8); Alkaline Phosphatase 79 U/L (46-116); Anion Gap 9 (5-15); BUN/Creatinine Ratio 25.4 (10.0-20.0); Blood Urea Nitrogen 18 mg/dL (9-23); Calcium 9.3 mg/dL (8.7-10.4); Carbon Dioxide 24 mmol/L (20-31); Cholesterol 165 mg/dL (< 200); Glucose 101 mg/dL (74-106); HDL Cholesterol 55 mg/dL (40-59); Potassium 4.1 mmol/L (3.5-5.1); Sodium 141 mmol/L (136-145); Total Protein 6.7 g/dL (5.7-8.2)
[2025-02-11 08:54] LABS: Bilirubin, Total 0.5 mg/dL (0.2-1.0)
[2025-02-11 08:59] LABS: Chloride 108 mmol/L (98-107); Triglycerides 192 mg/dL (< 150)
== END 2025-02-11 17:00 | disposition home or self-care (01) ==
LOC: LAB 07:01
PROVIDERS: ATTEND Internal Medicine
DX: I12.9 Hypertensive chronic kidney disease with stage 1 through stage 4 chronic kidney disease, or unspecified chronic kidney disease (principal); N18.2 Chronic kidney disease, stage 2 (mild); E11.22 Type 2 diabetes mellitus with diabetic chronic kidney disease; E78.2 Mixed hyperlipidemia
CPT/HCPCS: 36415; 80053; 80061; 83036

== ENCOUNTER 2025-02-25 07:02 | Outpatient (CLI) | payer OTHER ==
[2025-02-25 07:39] LABS: Hematocrit 41.4 % (36.0-46.0); Hemoglobin 14.3 g/dL (12.2-16.2); Mean Corpuscular Hemoglobin 29.3 pg (28.0-32.0); Mean Corpuscular Volume 85.2 fL (80.0-100.0); Nucleated Red Blood Cells % 0.1 %
[2025-02-25 07:46] LABS: INR 1.0 (0.9-1.15); Prothrombin Time 10.6 sec (9.3-11.8)
[2025-02-25 07:56] LABS: Alanine Aminotransferase 32 U/L (7-40); Albumin 4.6 g/dL (3.2-4.8); Alkaline Phosphatase 83 U/L (46-116); Anion Gap 9 (5-15); BUN/Creatinine Ratio 13.3 (10.0-20.0); Blood Urea Nitrogen 11 mg/dL (9-23); Calcium 9.7 mg/dL (8.7-10.4); Carbon Dioxide 30 mmol/L (20-31); Chloride 107 mmol/L (98-107); Cholesterol 175 mg/dL (< 200); Glucose 104 mg/dL (74-106); HDL Cholesterol 55 mg/dL (40-59); Potassium 4.4 mmol/L (3.5-5.1); Total Protein 7.0 g/dL (5.7-8.2)
[2025-02-25 07:57] LABS: Bilirubin, Total 0.5 mg/dL (0.2-1.0)
[2025-02-25 07:58] LABS: Sodium 146 mmol/L (136-145); Triglycerides 237 mg/dL (< 150)
== END 2025-02-25 17:00 | disposition home or self-care (01) ==
LOC: LAB 07:02
PROVIDERS: ATTEND Internal Medicine Gastroenterology
DX: K76.0 Fatty (change of) liver, not elsewhere classified (principal)
CPT/HCPCS: 36415; 80053; 80061; 83036; 85025; 85610

== ENCOUNTER 2025-06-19 07:30 | Outpatient (CLI) | payer OTHER ==
[2025-06-19 07:49] LABS: Hematocrit 41.7 % (36.0-46.0); Hemoglobin 13.8 g/dL (12.2-16.2); Mean Corpuscular Hemoglobin 28.1 pg (28.0-32.0); Mean Corpuscular Volume 84.5 fL (80.0-100.0); Nucleated Red Blood Cells % 0.1 %
[2025-06-19 08:12] LABS: Alkaline Phosphatase 103 U/L (46-116); Anion Gap 9 (5-15); BUN/Creatinine Ratio 11.1 (10.0-20.0); Calcium 9.5 mg/dL (8.7-10.4); Carbon Dioxide 29 mmol/L (20-31); Potassium 4.9 mmol/L (3.5-5.1); Total Protein 7.1 g/dL (5.7-8.2)
[2025-06-19 08:13] LABS: Albumin 4.4 g/dL (3.2-4.8); Bilirubin, Total 0.7 mg/dL (0.2-1.0)
[2025-06-19 08:19] LABS: Blood Urea Nitrogen 8 mg/dL (9-23); Chloride 108 mmol/L (98-107); Glucose 109 mg/dL (74-106); Sodium 146 mmol/L (136-145)
[2025-06-19 08:20] LABS: Alanine Aminotransferase 43 U/L (7-40)
== END 2025-06-19 17:00 | disposition home or self-care (01) ==
LOC: LAB 07:30
PROVIDERS: ATTEND Internal Medicine
DX: C50.912 Malignant neoplasm of unspecified site of left female breast (principal)
CPT/HCPCS: 36415; 80053; 82306; 85025; 86300